=== PATIENT | female | born 1970 | race Two or more races ===

== ENCOUNTER 2017-12-06 12:10 | Observation (INO) ==
--- NOTE | 2017-12-06 14:05 | Emergency Department Note ---
[facility] [place] Clinical Impression: Right lower quadrant abdominal pain Disposition: Still a Patient Condition on Discharge: Fair Time of Disposition: 14:04 Medical Decision Making - Travis Inquiry Pt receiving controlled substance: No Vital Signs: 12/06/17 12:20 Temperature 97.9 F Temperature Source Temporal Artery Scan Pulse Rate [Left Radial] 104 H Respiratory Rate 20 Blood Pressure [Left Arm] 137/92 Blood Pressure Mean [Left Arm] 107 Blood Pressure Source [Left Arm] Automatic Cuff Blood Pressure Position [Left Arm] Sitting 02 Sat by Pulse Oximetry 97 Oxygen Delivery Method Room Air - Lab Data Lab results reviewed: Yes: I reviewed the patient's lab results. Lab Results 12/06/17 12:45: Urine Color Yellow, Urine Appearance Clear, Urine pH 7.5, Ur Specific [place] 1.020, Urine Protein Trace, Urine Glucose (UA) Negative, Urine Ketones Negative, Urine Blood Negative, Urine Nitrate Negative, Urine Bilirubin Negative, Urine Urobilinogen 0.2, Ur Leukocyte Esterase Trace - Reevaluation(s) Time: 14:02 Reevaluation #1: Discussed possible differentials and [facility] guidelines w/ patient. Agreeable to transfer to ER for further evaluation, likely CT scan. Report called to Latanya in ER> Bed 9 available [facility] [place] - General Stated complaint: Abd pain Time Seen by Provider: 12/06/17 13:50 Mode of Arrival: Ambulatory Source of Information: Patient Limitations: No Limitations Description of Symptoms (Recalled from Triage Doc. by RN): Pt states she has had upper right quadrant pain for 4-5 days. She states she has a history of problems with her gallbladder. HEENT Symptoms (Recalled from RN notes): No Resp Symptoms (Recalled from RN notes): No Skin Symptoms (Recalled from RN notes): No MS Symptoms (Recalled from RN notes): No Functional Status (Recalled from RN notes): na - History of Present Illness Provider Complaint: c/o "pain in my gallbladder". pt thinks it is her gallbladder because approx one year ago she was told it was "damaged but not bad enough to be removed". Pain started again 4-5 days ago right side of abdomen and progressively getting worse. Currently 5-6/10, constant but fluctuates. Improved w/ guarding. Worse after eating and w/ speed bumps in parking lot. Associated w/ cramps and bloating however cramps resolved after day 2. LMP 10 years ago. excedrin not helping. Chills at times but no fever. Nausea but no vomiting. - Related Data Allergies Allergy/AdvReac Type Severity Reaction Status Date / Time No Known Allergies Allergy Verified 12/06/17 12:24 - Worker's Comp Is this a Worker's Comp case?: No H History I have reviewed the patient's past medical history: Yes Medical History: Reports:: Gall Bladder Disease Denies:: Diabetes Mellitus Type 2, Hypertension Other Surgeries: Yes: No Previous Surgery - Social History Alcohol Intake: never - Psychiatric History Expresses thoughts of harming self/others: None Suicide Plan Description: No Plan ROS Obtained: Yes Systems reviewed as appropriate & no additional complaints - Constitutional Constitutional: Reports as per HPI, Reports difficulty sleeping, Reports poor appetite (last ate around 9am this morning) - Cardiovascular Cardiovascular: Denies chest pain, Denies edema, Denies irregular heart rhythm - Respiratory Respiratory: No cough, No dyspnea - Gastrointestinal Gastrointestingal: Reports: as per HPI. Denies: change in bowel habits, change in stool character, pain with swallowing, vomiting - Genitourinary Female Genitourinary: Denies abnormal vaginal bleeding, Denies difficulty voiding, Denies dysuria, Denies urinary frequency, Denies urinary hesitancy, Denies vaginal discharge, Denies other (change urine color or smell) - Musculoskeletal Musculoskeletal: Denies back pain, Denies limited range of motion, Denies radiating pain into limb - Integumentary/Breasts Skin/Breast: Denies rash, Denies wounds - Neurologic Neurologic: Denies dizziness, Denies headache(s), Denies weakness Physical Exam - General General appearance: alert, other (guarding RLQ) - ENT ENT exam: Present: mucous membranes moist - Chest Chest inspection: Present: symmetric chest wall rise - Respiratory Respiratory exam: Present: normal lung sounds bilaterally. Absent: respiratory distress - Cardiovascular Cardiovascular exam: Present: normal rhythm, tachycardia, normal heart sounds - Abdominal Exam Abdominal exam: Present: soft, tenderness (RLQ), diminished bowel sounds, obturator sign, tenderness at McBurney's Point. Absent: distention, guarding, rebound, organomegaly, Haskins's sign, Rovsing's sign Abdominal tenderness: Absent: suprapubic - Extremities Exam Extremities exam: Present: full ROM (x4) - Back Exam Back exam: Present: normal inspection, full ROM. Absent: tenderness, CVA tenderness (R), CVA tenderness (L) - Neurological Exam Neurological exam: Present: alert, oriented X3 - Skin Skin exam: Present: warm, dry, intact, normal color
--- NOTE | 2017-12-06 14:43 | Emergency Department Note ---
ED Disposition Clinical Impression: Right lower quadrant abdominal pain Disposition: Still a Patient Referrals: Provider,Referral, [Referring] - Attestation: On 12/06/17, the high probability of a clinically significant, sudden or life threatening deterioration of the following system(s) required my full and direct attention, intervention and personal management. The time I documented below is in addition to time spent performing reported procedures but includes the following listed in this critical care notation. Medical Decision Making - Travis Inquiry Pt receiving controlled substance: No Vital Signs: 12/06/17 12:20 12/06/17 14:17 12/06/17 15:11 Temperature 97.9 F 99.0 F 98.6 F Temperature Source Temporal Artery Scan Oral Oral Pulse Rate [Left Radial] 104 H 88 77 Respiratory Rate 20 20 16 Blood Pressure [Left Arm] 137/92 117/98 127/90 Blood Pressure Mean [Left Arm] 107 104 102 Blood Pressure Source [Left Arm] Automatic Cuff Automatic Cuff Automatic Cuff Blood Pressure Position [Left Arm] Sitting Sitting Sitting 02 Sat by Pulse Oximetry 97 94 L 99 Oxygen Delivery Method Room Air Room Air Room Air - Lab Data Lab Results 12/06/17 12:45: Urine Color Yellow, Urine Appearance Clear, Urine pH 7.5, Ur Specific [place] 1.020, Urine Protein Trace, Urine Glucose (UA) Negative, Urine Ketones Negative, Urine Blood Negative, Urine Nitrate Negative, Urine Bilirubin Negative, Urine Urobilinogen 0.2, Ur Leukocyte Esterase Trace 12/06/17 14:40: WBC 7.5, RBC 6.04 H, Hgb 15.8, Hct 50.5 H, MCV 83.5, MCH 26.1 L , MCHC 31.3 L, RDW 14.6, Plt Count 230, MPV 7.2 L, Neut % (Auto) 72.8, Lymph % ( Auto) 20.8, [place] % (Auto) 4.6, Eos % (Auto) 1.6, Baso % (Auto) 0.3, Neut # (Auto ) 5.4, Lymph # (Auto) 1.6, [place] # (Auto) 0.3, Eos # (Auto) 0.1, Baso # (Auto) 0.0 12/06/17 14:40: Sodium 142, Potassium 3.9, Chloride 104, Carbon Dioxide 29, Anion Gap 12.9, BUN 12, Creatinine 0.60, Estimated Creat Clear 144, Estimated GFR 108, Est GFR ( Amer) 131, Glucose 119 H, Calcium 9.4, Total Bilirubin 0.4, AST 16, ALT 19, Alkaline Phosphatase 58, Total Protein 7.4, Albumin 3.8, Globulin 3.6 H, Albumin/Globulin Ratio 1.1, Lipase 437 H 12/06/17 14:40: Amylase 82 Result diagrams: 12/06/17 14:40 12/06/17 14:40 Orders (Tests/Meds): ED MEDICATIONS Discontinued Medications Generic Name Dose Route Start Last Admin Trade Name Freq PRN Reason Stop Dose Admin Iopamidol 75 ml 12/06/17 16:30 12/06/17 16:30 [id number]; 75ml Vial IV 12/06/17 16:31 75 ml ONCE ONE Administration Sodium Chloride 10 ml 12/06/17 16:30 12/06/17 16:31 Rad-Saline Flush 10ml Syringe IV 12/06/17 16:31 10 ml ONCE ONE Administration ORDERS Category Date Time Status CT abdomen pelvis w con Routine Cat Scan 12/06/17 Taken - CT Data CT Scan: Abdomen, Pelvis Time Received: 16:[address] Reviewed: Yes: I discussed the CT results w/the radiologist Findings Narrative: Acute appendicitis. Thickened appendix with no signs of perforation or abscess. - Physician Consults Physician Consulted: Zechariah Time: 16:49 Reason -: Admission Comment/Response: He will come to the emergency room to see the patient. He requests the surgery team be called in. General Adult HPI - General Chief complaint: PAIN Stated complaint: Abd pain Time Seen by Provider: 12/06/17 13:50 Mode of Arrival: Ambulatory Limitations: No Limitations Description of Symptoms (Recalled from ER Triage Doc. by RN): Pt states she started having pain on right side for mid area. Says she has had gallbladder pain in the past and this feels the same. Before when she had trouble with her gallbladder they told her to change her diet. - History of Present Illness HPI narrative: 4 day history of right-sided abdominal pain. She indicates the mid abdomen, at about the level of the umbilicus. Nausea after eating, but eating does not make the pain worse. Laying on her right side does make it worse. She has had chills but no fever. No vomiting, diarrhea, constipation, or urinary symptoms. In 2014 she had gallbladder ultrasound and hepatobiliary scan at this facility which showed a small amount of sludge on the ultrasound and a normal ejection fraction on biliary scan. Seen in the urgent treatment center and sent to the emergency room for further evaluation. - Related Data Allergies Allergy/AdvReac Type Severity Reaction Status Date / Time No Known Allergies Allergy Verified 12/06/17 12:24 [facility] History I have reviewed the patient's past medical history: Yes Medical History: Reports:: Gall Bladder Disease Denies:: Diabetes Mellitus Type 2, Hypertension Other Surgeries: Yes: No Previous Surgery - Social History Alcohol Intake: never - Psychiatric History Expresses thoughts of harming self/others: None Suicide Plan Description: No Plan ROS Obtained: Yes All systems reviewed & no additional complaints - Constitutional Constitutional: Reports chills, Denies fever(s) - Cardiovascular Cardiovascular: Denies chest pain - Respiratory Respiratory: No dyspnea - Gastrointestinal Gastrointestingal: Reports: abdominal pain, nausea. Denies: diarrhea, vomiting - Genitourinary Female Genitourinary: Reports absent period (10 yrs), Denies dysuria Physical Exam - General General appearance: alert, other (guarding RLQ) - Head Head exam: atraumatic, normocephalic, normal inspection - Eye Eye exam: Present: normal appearance, PERRL, EOMI - ENT ENT exam: Present: normal exam, normal oropharynx, mucous membranes moist, TM's normal bilaterally, normal external ear exam - Neck Neck exam: Present: normal inspection, full ROM, trachea midline. Absent: meningismus, lymphadenopathy - Chest Chest inspection: Present: normal inspection, symmetric chest wall rise. Absent : tenderness - Respiratory Respiratory exam: Present: normal lung sounds bilaterally. Absent: respiratory distress - Cardiovascular Cardiovascular exam: Present: regular rate, normal rhythm. Absent: JVD - Abdominal Exam Abdominal exam: Present: soft, tenderness, normal bowel sounds. Absent: distention, guarding, rebound Abdominal tenderness: Present: RUQ, RLQ - Extremities Exam Extremities exam: Present: normal inspection, full ROM, normal capillary refill. Absent: calf tenderness - Back Exam Back exam: Present: normal inspection. Absent: tenderness - Neurological Exam Neurological exam: Present: alert, oriented X3 - Psychiatric Psychiatric exam: Present: normal affect, normal mood - Skin Skin exam: Present: warm, dry, intact, normal color - Lymphatic Lymphatic Findings: no adenopathy
[2017-12-06 15:06] LABS: Basophils % 0.3 % (0.1-2.0); Eosinophils # 0.1 K/mm3 (0.0-0.4); Eosinophils % 1.6 % (0.1-12.0); Hematocrit 50.5 % (37.0-47.0); Hemoglobin 15.8 g/dL (12.2-16.2); Lymphocytes # 1.6 K/mm3 (0.7-4.5); Lymphocytes % 20.8 K/mm3 (10-50); Mean Corpuscular HGB Conc 31.3 g/dL (31.8-35.4); Mean Corpuscular Hemoglobin 26.1 pg (27.0-31.2); Mean Corpuscular Volume 83.5 fl (81-99); Mean Platelet Volume 7.2 fl (7.4-10.4); Monocytes # 0.3 K/mm3 (0.1-1.0); Monocytes % 4.6 % (1.7-9.3); Neutrophils # 5.4 K/mm3 (1.8-7.8); Neutrophils % 72.8 % (37.0-80.0); Platelet Count 230 K/mm3 (142-424); Red Blood Count 6.04 M/mm3 (4.20-5.40); Red Cell Distribution Width 14.6 % (11.5-17.5); White Blood Count 7.5 K/mm3 (4.8-10.8)
[2017-12-06 15:14] LABS: Albumin Level 3.8 gm/dL (3.4-5.0); Albumin/Globulin Ratio 1.1 (1.1-1.8); Anion Gap 12.9 mEq/L (5-15); Bilirubin,Total 0.4 mg/dL (0.2-1.0); Calcium 9.4 mg/dL (8.5-10.1); Globulin 3.6 gm/dl (1.3-3.2); Total Protein,Serum 7.4 gm/dL (6.4-8.2)
[2017-12-06 15:15] LABS: Potassium 3.9 mmoL/L (3.5-5.1)
--- NOTE | 2017-12-06 17:54 | Progress Note ---
[facility] Anesthesia Checklist - Patient Identification Patient Identification: Arm Band, Verbal (Name & ) - Structural Data Admitted From: Emergency Dept Consent for Planned Operative Procedure(s) Verified: Yes Verified Documents: Surgical Consent, History and Physical - NPO Status Verified Time NPO: 09:30 - Additional verifications Patient : No Anesthesia Reactions: No - Airway Assessment C-Spine Mobility Assessed: Yes TMJ Mobility Assessed: Yes Dentition: Good Dentition (Missing four teeth) - Neurological Assessment Level of Consciousness: Awake Hx Seizures: No Numbness or tingling in extremities: No - Anesthesia Plan Anesthesia Risk discussed: Yes Anesthesia Plan: Verified ASA Class: II (Emergent) Anesthesia Type: General [facility] Anesthesia HX I have reviewed the patient's past medical history: Yes Medical History: Reports:: Anxiety, Gall Bladder Disease Denies:: Diabetes Mellitus Type 2, Hypertension, Seizures Other Surgeries: Yes: No Previous Surgery
--- NOTE | 2017-12-06 17:56 | Emergency Department Note ---
ED Disposition Clinical Impression: Acute appendicitis Disposition: Still a Patient Condition on Discharge: Good - Critical Care Critical Care Time: No Attestation: On 12/06/17, the high probability of a clinically significant, sudden or life threatening deterioration of the following system(s) required my full and direct attention, intervention and personal management. The time I documented below is in addition to time spent performing reported procedures but includes the following listed in this critical care notation. Medical Decision Making - Travis Inquiry Pt receiving controlled substance: No Vital Signs: 12/06/17 12:20 12/06/17 14:17 12/06/17 15:11 Temperature 97.9 F 99.0 F 98.6 F Temperature Source Temporal Artery Scan Oral Oral Pulse Rate [Left Radial] 104 H 88 77 Respiratory Rate 20 20 16 Blood Pressure [Left Arm] 137/92 117/98 127/90 Blood Pressure Mean [Left Arm] 107 104 102 Blood Pressure Source [Left Arm] Automatic Cuff Automatic Cuff Automatic Cuff Blood Pressure Position [Left Arm] Sitting Sitting Sitting 02 Sat by Pulse Oximetry 97 94 L 99 Oxygen Delivery Method Room Air Room Air Room Air 12/06/17 16:58 Temperature 98.4 F Temperature Source Oral Pulse Rate [Left Radial] 80 Respiratory Rate 18 Blood Pressure [Left Arm] 120/87 Blood Pressure Mean [Left Arm] 98 Blood Pressure Source [Left Arm] Automatic Cuff Blood Pressure Position [Left Arm] Sitting 02 Sat by Pulse Oximetry 97 Oxygen Delivery Method Room Air - Lab Data Lab Results 12/06/17 12:45: Urine Color Yellow, Urine Appearance Clear, Urine pH 7.5, Ur Specific [place] 1.020, Urine Protein Trace, Urine Glucose (UA) Negative, Urine Ketones Negative, Urine Blood Negative, Urine Nitrate Negative, Urine Bilirubin Negative, Urine Urobilinogen 0.2, Ur Leukocyte Esterase Trace 12/06/17 14:40: WBC 7.5, RBC 6.04 H, Hgb 15.8, Hct 50.5 H, MCV 83.5, MCH 26.1 L , MCHC 31.3 L, RDW 14.6, Plt Count 230, MPV 7.2 L, Neut % (Auto) 72.8, Lymph % ( Auto) 20.8, [place] % (Auto) 4.6, Eos % (Auto) 1.6, Baso % (Auto) 0.3, Neut # (Auto ) 5.4, Lymph # (Auto) 1.6, [place] # (Auto) 0.3, Eos # (Auto) 0.1, Baso # (Auto) 0.0 12/06/17 14:40: Sodium 142, Potassium 3.9, Chloride 104, Carbon Dioxide 29, Anion Gap 12.9, BUN 12, Creatinine 0.60, Estimated Creat Clear 144, Estimated GFR 108, Est GFR ( Amer) 131, Glucose 119 H, Calcium 9.4, Total Bilirubin 0.4, AST 16, ALT 19, Alkaline Phosphatase 58, Total Protein 7.4, Albumin 3.8, Globulin 3.6 H, Albumin/Globulin Ratio 1.1, Lipase 437 H 12/06/17 14:40: Amylase 82 Result diagrams: 12/06/17 14:40 12/06/17 14:40 Orders (Tests/Meds): ED MEDICATIONS Discontinued Medications Generic Name Dose Route Start Last Admin Trade Name Freq PRN Reason Stop Dose Admin Iopamidol 75 ml 12/06/17 16:30 12/06/17 16:30 [id number]; 75ml Vial IV 12/06/17 16:31 75 ml ONCE ONE Administration Sodium Chloride 10 ml 12/06/17 16:30 12/06/17 16:31 Rad-Saline Flush 10ml Syringe IV 12/06/17 16:31 10 ml ONCE ONE Administration Sodium Chloride 1,000 ml 12/06/17 16:48 Sod Chlor 0.9% 1000ml Bag IV 12/06/17 16:49 BOLUS ONE ORDERS Category Date Time Status CT abdomen pelvis w con Routine Cat Scan 12/06/17 Taken - CT Data CT Scan: Abdomen, Pelvis Time Received: 16:[address] Reviewed: Yes: I discussed the CT results w/the radiologist Findings Narrative: Acute appendicitis. Thickened appendix without signs of perforation or abscess. - Physician Consults Physician Consulted: Zechariah Time: 16:49 Reason -: Admission Comment/Response: Came to the emergency department and saw the patient and took to surgery General Adult HPI - General Chief complaint: PAIN Stated complaint: Abd pain Time Seen by Provider: 12/06/17 13:50 Mode of Arrival: Ambulatory Limitations: No Limitations Description of Symptoms (Recalled from ER Triage Doc. by RN): Pt states she started having pain on right side for mid area. Says she has had gallbladder pain in the past and this feels the same. Before when she had trouble with her gallbladder they told her to change her diet. - History of Present Illness HPI narrative: Right sided abdominal pain for 3 days. Nausea but no vomiting, diarrhea, urinary symptoms, or fever. Has had chills. Worse while laying on the right side. Eating does not make the pain worse. In 2014 she had gallbladder ultrasound and hepatobiliary scan at this facility which showed a small amount of sludge and a normal ejection fraction. Seen in the urgent treatment center and sent to the emergency room for further evaluation. - Related Data Allergies Allergy/AdvReac Type Severity Reaction Status Date / Time No Known Allergies Allergy Verified 12/06/17 12:24 [facility] History I have reviewed the patient's past medical history: Yes Medical History: Reports:: Gall Bladder Disease Denies:: Diabetes Mellitus Type 2, Hypertension, Seizures Other Surgeries: Yes: No Previous Surgery - Social History Alcohol Intake: never - Psychiatric History Expresses thoughts of harming self/others: None Suicide Plan Description: No Plan ROS Obtained: Yes All systems reviewed & no additional complaints - Constitutional Constitutional: Reports chills, Denies fever(s) - Cardiovascular Cardiovascular: Denies chest pain - Respiratory Respiratory: No dyspnea - Gastrointestinal Gastrointestingal: Reports: abdominal pain, nausea. Denies: diarrhea, vomiting - Genitourinary Female Genitourinary: Denies difficulty voiding, Denies dysuria Physical Exam - General General appearance: alert, other (guarding RLQ) - Head Head exam: atraumatic, normocephalic, normal inspection - Eye Eye exam: Present: normal appearance, PERRL, EOMI - ENT ENT exam: Present: normal exam, normal oropharynx, mucous membranes moist, TM's normal bilaterally, normal external ear exam - Neck Neck exam: Present: normal inspection, full ROM, trachea midline. Absent: meningismus, lymphadenopathy - Chest Chest inspection: Present: normal inspection, symmetric chest wall rise. Absent : tenderness - Respiratory Respiratory exam: Present: normal lung sounds bilaterally. Absent: respiratory distress - Cardiovascular Cardiovascular exam: Present: regular rate, normal rhythm. Absent: JVD - Abdominal Exam Abdominal exam: Present: soft, tenderness, normal bowel sounds. Absent: distention, guarding Abdominal tenderness: Present: RUQ, RLQ - Extremities Exam Extremities exam: Present: normal inspection, full ROM, normal capillary refill. Absent: calf tenderness - Back Exam Back exam: Present: normal inspection. Absent: tenderness - Neurological Exam Neurological exam: Present: alert, oriented X3 - Psychiatric Psychiatric exam: Present: normal affect, normal mood - Skin Skin exam: Present: warm, dry, intact, normal color - Lymphatic Lymphatic Findings: no adenopathy
--- NOTE | 2017-12-06 19:33 | Operative Note ---
Date of procedure: 12/06/17 Pre-op Diagnosis:: Appendicitis Post-op Diagnosis:: Same Procedure performed:: Laparoscopic appendectomy Surgeon:: Singh Apple MD Anesthesia: GETA Estimated blood loss (mL): 10 Operative findings:: Enlarged inflamed/thickened appendix with no sign of perforation Operative note:: After informed consent was obtained, the patient was taken to the operating room and placed in the supine position general anesthesia was induced and her abdomen was prepped and draped in a sterile fashion. After infiltration of local anesthetic an infraumbilical incision was made. A Veress needle was placed in position. The abdomen was insufflated. A 12 mm optical trocar was placed in position. Under direct visualization a 5 mm trocar was placed in the suprapubic position. An additional 5 mm trocar was placed in the left lower quadrant. The appendix was elevated. The appendix was thickened and inflamed. No sign of perforation was noted. No cavities of purulence or fluid collections were seen. A window was made in the mesoappendix at the base. A PUSHPA stapler was utilized to take the appendix at the base. Harmonic bri were then utilized to take the mesoappendix. The appendix was placed in a retrieval bag and removed through the infraumbilical trocar site. The right lower quadrant was thoroughly irrigated. No active bleeding or sign of injury was noted. Fascia at the infraumbilical trocar site was reapproximated with 0 Ethibond. Pneumoperitoneum was released as the remaining trocars were removed. All wounds were irrigated and skin was closed with 4-0 Monocryl in a subcuticular fashion. Steri-Strips were applied. The patient's anesthetic agents were reversed and she was extubated prior to transfer to recovery. Condition: stable Disposition: PACU Specimens:: Appendix Complications:: No immediate
--- NOTE | 2017-12-06 19:48 | Progress Note ---
[facility] Anesthesia Record Part I Intake, IV Amount: 500 Estimated blood loss (mL): 10 Urine output (mL): 30 Blood Products used (#): none Blood Pressure: 160/81 SaO2: 97 Pulse Rate: 87 Respiratory Rate: 16 Temperature: 98.4 F Patient is:: Awake, Stable Stable to PACU at:: 19:40
--- NOTE | 2017-12-06 19:48 | Progress Note ---
[facility] Anesthesia Record Part II Discharge Time: 20:10 Destination: Medical Surgical Department PACU nurse assessment reviewed?: Yes Patient Condition:: Good Anesthesia Complications:: None
--- NOTE | 2017-12-07 06:27 | Progress Note ---
Subjective Patient reports: feels better Exam Vital signs and Labs for Last 24 Hours: Temp Pulse Resp BP Pulse Ox 97.7 F 74 16 97/48 97 12/07/17 03:35 12/07/17 03:35 12/07/17 03:35 12/07/17 03:35 12/07/17 03:35 Laboratory Results - last 24 hr 12/06/17 12:45: Urine Color Yellow, Urine Appearance Clear, Urine pH 7.5, Ur Specific [place] 1.020, Urine Protein Trace, Urine Glucose (UA) Negative, Urine Ketones Negative, Urine Blood Negative, Urine Nitrate Negative, Urine Bilirubin Negative, Urine Urobilinogen 0.2, Ur Leukocyte Esterase Trace 12/06/17 14:40: WBC 7.5, RBC 6.04 H, Hgb 15.8, Hct 50.5 H, MCV 83.5, MCH 26.1 L , MCHC 31.3 L, RDW 14.6, Plt Count 230, MPV 7.2 L, Neut % (Auto) 72.8, Lymph % ( Auto) 20.8, [place] % (Auto) 4.6, Eos % (Auto) 1.6, Baso % (Auto) 0.3, Neut # (Auto ) 5.4, Lymph # (Auto) 1.6, [place] # (Auto) 0.3, Eos # (Auto) 0.1, Baso # (Auto) 0.0 12/06/17 14:40: Sodium 142, Potassium 3.9, Chloride 104, Carbon Dioxide 29, Anion Gap 12.9, BUN 12, Creatinine 0.60, Estimated Creat Clear 144, Estimated GFR 108, Est GFR ( Amer) 131, Glucose 119 H, Calcium 9.4, Total Bilirubin 0.4, AST 16, ALT 19, Alkaline Phosphatase 58, Total Protein 7.4, Albumin 3.8, Globulin 3.6 H, Albumin/Globulin Ratio 1.1, Lipase 437 H 12/06/17 14:40: Amylase 82 12/06/17 18:30: Urine Color Yellow, Urine Appearance Clear, Urine pH 5.5, Ur Specific [place] 1.015, Urine Protein Negative, Urine Glucose (UA) Negative, Urine Ketones Negative, Urine Blood 1+, Urine Nitrate Negative, Urine Bilirubin Negative, Urine Urobilinogen 0.2, Ur Leukocyte Esterase Negative, Urine RBC 3-5 , Urine WBC Occasional, Ur Squamous Epith Cells Occasional, Urine Bacteria Trace I & O for Last 24 hours: Intake & Output 12/04/17 12/05/17 12/06/17 12/07/17 11:59 11:59 11:59 11:59 Intake Total 1650 / 1650 Output Total Balance 1620 / 1620 Weight 190 lb 2 oz - Constitutional no acute distress - *Routine Respiratory Exam Absent: respiratory distress - *Routine Cardiovascular Exam Present: RRR - *Routine Abdominal Exam Present: soft Comments: dressing intact and dry. no erythema. Progress Note: A&P (1) Acute appendicitis Status: Acute Assessment and plan: Overall, doing very well postoperative day 1 status post laparoscopic appendectomy. Discharge home No heavy lifting Return to clinic for reevaluation in 1-2 weeks Current Visit: Yes
--- NOTE | 2017-12-07 06:30 | Discharge Summary ---
General - General Admission date:: 12/06/17 Discharge date: 12/07/17 HPI HPI: This is a 47-year-old female who presented to the emergency department with increasing right lower quadrant pain. She had radiographic evidence consistent with appendicitis and the surgical service was consulted. Hospital Course Hospital Course: The patient underwent laparoscopic appendectomy. Please see operative report for detail. No sign of perforation or abscess noted. On the morning of postoperative day 1 she was afebrile with stable normal vital signs. She was ambulating without difficulty and tolerating a diet. Objective Vital signs: Temp Pulse Resp BP Pulse Ox 97.7 F 74 16 97/48 97 12/07/17 03:35 12/07/17 03:35 12/07/17 03:35 12/07/17 03:35 12/07/17 03:35 no acute distress - *Routine Neck Exam Present: full ROM - *Routine Respiratory Exam Absent: respiratory distress - *Routine Cardiovascular Exam Present: RRR - *Routine Abdominal Exam Present: soft, tenderness Comments: RLQ - *Routine Neurological Exam Present: alert, oriented X3 - Routine Psychiatric Exam Present: normal affect Results Labs on day of discharge: Labs from last 24 hours 12/06/17 12/06/17 12/06/17 18:30 14:40 14:40 WBC RBC Hgb Hct MCV MCH MCHC RDW Plt Count MPV Neut % (Auto) Lymph % (Auto) [place] % (Auto) Eos % (Auto) Baso % (Auto) Neut # (Auto) Lymph # (Auto) [place] # (Auto) Eos # (Auto) Baso # (Auto) Sodium 142 Potassium 3.9 Chloride 104 Carbon Dioxide 29 Anion Gap 12.9 BUN 12 Creatinine 0.60 Estimated Creat Clear 144 Estimated GFR 108 Est GFR ( Amer) 131 Glucose 119 H Calcium 9.4 Total Bilirubin 0.4 AST 16 ALT 19 Alkaline Phosphatase 58 Total Protein 7.4 Albumin 3.8 Globulin 3.6 H Albumin/Globulin Ratio 1.1 Amylase 82 Lipase 437 H Urine Color Yellow Urine Appearance Clear Urine pH 5.5 Ur Specific [place] 1.015 Urine Protein Negative Urine Glucose (UA) Negative Urine Ketones Negative Urine Blood 1+ Urine Nitrate Negative Urine Bilirubin Negative Urine Urobilinogen 0.2 Ur Leukocyte Esterase Negative Urine RBC 3-5 Urine WBC Occasional Ur Squamous Epith Cells Occasional Urine Bacteria Trace 12/06/17 12/06/17 14:40 12:45 WBC 7.5 RBC 6.04 H Hgb 15.8 Hct 50.5 H MCV 83.5 MCH 26.1 L MCHC 31.3 L RDW 14.6 Plt Count 230 MPV 7.2 L Neut % (Auto) 72.8 Lymph % (Auto) 20.8 [place] % (Auto) 4.6 Eos % (Auto) 1.6 Baso % (Auto) 0.3 Neut # (Auto) 5.4 Lymph # (Auto) 1.6 [place] # (Auto) 0.3 Eos # (Auto) 0.1 Baso # (Auto) 0.0 Sodium Potassium Chloride Carbon Dioxide Anion Gap BUN Creatinine Estimated Creat Clear Estimated GFR Est GFR ( Amer) Glucose Calcium Total Bilirubin AST ALT Alkaline Phosphatase Total Protein Albumin Globulin Albumin/Globulin Ratio Amylase Lipase Urine Color Yellow Urine Appearance Clear Urine pH 7.5 Ur Specific [place] 1.020 Urine Protein Trace Urine Glucose (UA) Negative Urine Ketones Negative Urine Blood Negative Urine Nitrate Negative Urine Bilirubin Negative Urine Urobilinogen 0.2 Ur Leukocyte Esterase Trace Urine RBC Urine WBC Ur Squamous Epith Cells Urine Bacteria DS: Diagnosis - Discharge Diagnosis (1) Acute appendicitis Status: Acute Discharge Plan - Patient Discharge Instructions ACTIVITY: No heavy lifting DIET: advance to your usual diet - Follow up Plan Follow up with: Singh Apple MD [Primary Care Provider] - 1 week Provider,MD Ector [Referring] - Disposition: Home, Self-Senior Care Medications: Home Medications Medication Instructions Recorded Confirmed Type Duloxetine HCl 20 mg PO DAILY 12/06/17 12/06/17 History Prescriptions/Medication Reconciliation: Continue Duloxetine HCl 20 mg PO DAILY
--- NOTE | 2017-12-07 07:37 | Pharmacy Consult Notes ---
[facility] Pharmacy VTE Monitoring - Patient Demographics Admission date: 12/06/17 Report Date: 12/07/17 Time: 07:37 Allergies/Adverse Reactions: Patient Allergies No Known Allergies Allergy (Verified 12/06/17 12:24) Height: 1.75 m Weight: 86.239 kg Patient Problems: Current Active Problems Acute appendicitis (Acute) - VTE Risk Labs: VTE Related Lab Results Hgb 15.8 g/dL (12.2-16.2) 12/06/17 14:40 Hct 50.5 % (37.0-47.0) H 12/06/17 14:40 Plt Count 230 K/mm3 (142-424) 12/06/17 14:40 BUN 12 mg/dL (7-18) 12/06/17 14:40 Creatinine 0.60 mg/dL (0.55-1.02) 12/06/17 14:40 Estimated Creat Clear 144 mL/min (0-300) 12/06/17 14:40 VTE Score: 3 VTE Risk Level: Low Risk - Prophylaxis VTE Prophylaxis Ordered?: Yes Types of VTE Prophylaxis: IPCS Thigh High Location of Applied Device: Bilateral Lower Extremeties - VTE Diagnosis Confirmed Treatment or plan recommended: Continue Current Treatment
== END 2017-12-07 09:20 | disposition home or self-care (01) ==
LOC: UTC 12:10 → 2ND 17:10 → OR 17:10 → EDUNIT# 18:16
PROVIDERS: ADMIT Surgery; ATTEND Surgery
CPT/HCPCS: 74177; 80053; 81001; 81003; 82150; 83690; 85025; 96365; 99284; G0378; J2405; J2543; Q9967

== ENCOUNTER → 2018-02-08 12:23 | Outpatient (CLI) | payer BC, SELFPAY ==
[2018-02-08 13:01] LABS: Basophils % 0.5 % (0.1-2.0); Eosinophils # 0.1 K/mm3 (0.0-0.4); Eosinophils % 1.8 % (0.1-12.0); Hematocrit 46.8 % (37.0-47.0); Hemoglobin 15.5 g/dL (12.2-16.2); Lymphocytes # 1.4 K/mm3 (0.7-4.5); Lymphocytes % 25.2 K/mm3 (10-50); Mean Corpuscular HGB Conc 33.1 g/dL (31.8-35.4); Mean Corpuscular Hemoglobin 27.5 pg (27.0-31.2); Mean Platelet Volume 7.1 fl (7.4-10.4); Monocytes # 0.2 K/mm3 (0.1-1.0); Monocytes % 4.3 % (1.7-9.3); Neutrophils # 3.8 K/mm3 (1.8-7.8); Neutrophils % 68.2 % (37.0-80.0); Platelet Count 268 K/mm3 (142-424); Red Blood Count 5.64 M/mm3 (4.20-5.40); Red Cell Distribution Width 14.4 % (11.5-17.5); White Blood Count 5.6 K/mm3 (4.8-10.8)
[2018-02-08 14:43] LABS: Hemoglobin A1C 5.6 % (0.0-7.0)
[2018-02-08 15:00] LABS: Alanine Aminotransferase 20 U/L (12-78); Albumin Level 4.4 gm/dL (3.4-5.0); Albumin/Globulin Ratio 1.3 (1.1-1.8); Alkaline Phosphatase 77 U/L (46-116); Anion Gap 12.9 mEq/L (5-15); Aspartate Amino Transferase 17 U/L (15-37); Bilirubin,Total 0.6 mg/dL (0.2-1.0); Blood Urea Nitrogen 15 mg/dL (7-18); Calcium 9.4 mg/dL (8.5-10.1); Carbon Dioxide 27 mmol/L (21.0-32.0); Chloride 107 mmol/L (98-107); Chol/HDL Ratio 5.3 (1-3.5); Cholesterol 208 mg/dL (140-200); Creatinine,Serum 0.55 mg/dL (0.55-1.02); Estimated Glomerular Filt Rate 120 ml/min (>60); Ferritin 90 ng/mL (8-388); Free Thyroxine Index 2.9 ug/dL (5.93-13.13); GFR (African American) 145 ML/MIN (>60); Globulin 3.4 gm/dl (1.3-3.2); Glucose 101 mg/dL (74-106); HDL Cholesterol 39 mg/dL (29-89); LDL Cholesterol 135 mg/dL (0-130); Potassium 3.9 mmoL/L (3.5-5.1); Sodium 143 mmol/L (136-145); T4 (Thyroxine) 9.5 ug/dl (4.7-13.3); Thyroid Stimulating Hormone 1.54 uIU/ml (0.358-3.740); Total Protein,Serum 7.8 gm/dL (6.4-8.2); Triglycerides 172 mg/dL (30-200); Triiodothryronine (T3) Uptake 30 % (31-39); VLDL Cholesterol 34 mg/dL (0-40)
[2018-02-09 08:30] LABS: Iron 56 ug/dL (27-159); Iron Saturation 15 % (15-55); UIBC 313 ug/dL (131-425)
[2018-02-09 18:17] LABS: Vitamin B12 523 pg/mL (232-1245)
== END ==
PROVIDERS: Visit Provider Nurse Practitioner Family
DX: R73.9 Hyperglycemia, unspecified (principal); R53.81 Other malaise; E01.0 Iodine-deficiency related diffuse (endemic) goiter
CPT/HCPCS: 36415; 80053; 80061; 82607; 82728; 83036; 83540; 83550; 84436; 84443; 84479; 85025

== ENCOUNTER → 2018-02-13 09:17 | Outpatient (CLI) | payer BC, SELFPAY ==
--- NOTE | 2018-02-13 09:19 | US_ITS ---
US thyroid HISTORY: ITS.REASON: THYROMEGLY ORDERING PHYSICIAN: Miranda Sotomayor PATIENT AGE: 47 years Comparison: None FINDINGS: The right lobe is 4.6 x 2.5 x 2 cm with heterogeneous echogenicity. The left lobe is 4.8 x 1.3 x 2.2 cm with heterogeneous echogenicity. There was a question of a nodule in the upper pole on the right however, discrete margins are not demonstrated in both the transverse and sagittal planes The isthmus is slightly thickened 4 mm. IMPRESSION: Thyromegaly with heterogeneous echogenicity. Discrete nodule is not identified. There is questionable nodule in the upper pole on the right but not demonstrated in both transverse and sagittal plane. Recommend 6 month follow-up to confirm stability.
== END ==
PROVIDERS: Family Provider Internal Medicine Adolescent Medicine; PCP Nurse Practitioner Family; Visit Provider Nurse Practitioner Family
DX: E01.0 Iodine-deficiency related diffuse (endemic) goiter (principal)
CPT/HCPCS: 76536

== ENCOUNTER → 2018-03-13 10:54 | Outpatient (POV) | payer BC, SELFPAY ==
[2018-03-14 10:24] LABS: Thyroid Peroxidase Antibodies 159 IU/mL (0-34)
[2018-03-15 08:32] LABS: Thyroglobulin Level <1.0 IU/mL (0.0-0.9)
== END ==
PROVIDERS: Visit Provider Otolaryngology
DX: E01.0 Iodine-deficiency related diffuse (endemic) goiter (principal)
CPT/HCPCS: 36415; 86376; 86800

== ENCOUNTER → 2018-06-04 08:00 | Outpatient (POV) | payer BC, SELFPAY | PROVIDERS: Visit Provider Specialist | DX: M54.10 Radiculopathy, site unspecified (principal) | CPT/HCPCS: 95886; 95908 ==

== ENCOUNTER → 2018-09-12 16:18 | Outpatient (CLI) | payer BC, SELFPAY ==
--- NOTE | 2018-09-12 16:23 | XR_ITS ---
XR KUB HISTORY: ITS.REASON: FLANK PAIN ORDERING PHYSICIAN: Heaven Blackman PATIENT AGE: 47 years COMPARISON: None FINDINGS: The bowel gas pattern is unremarkable. No obvious obstruction.. No abnormal calcifications are evident. No obvious renal or ureteral calculi.. No acute bony anomalies evident. There is an IUD in place. IMPRESSION: Negative KUB, no acute finding CT may be of further value if renal stone is suspected
== END ==
PROVIDERS: PCP Family Medicine; Visit Provider Family Medicine
DX: R10.9 Unspecified abdominal pain (principal)
CPT/HCPCS: 74018

== ENCOUNTER → 2019-02-25 09:38 | Outpatient (CLI) | payer BC, SELFPAY | PROVIDERS: PCP Internal Medicine Adolescent Medicine; Visit Provider Family Medicine | DX: R00.2 Palpitations (principal) | CPT/HCPCS: 93270 ==

== ENCOUNTER → 2019-07-29 14:04 | Outpatient (CLI) | payer BC, SELFPAY ==
--- NOTE | 2019-07-29 14:08 | US_ITS ---
PROCEDURE: US THYROID CLINICAL INDICATION: THYROMEGLY COMPARISON: THY US thyroid from 02/13/2018 FINDINGS: Right lobe: 2.0 x 5.7 x 2.3 centimeters Left lobe: 1.7 x 5.7 x 2.0 centimeters Isthmus: 5.3 millimeters Additional findings: There is heterogeneity of the thyroid echotexture. A focal hypoechoic area in the superior posterior right thyroid 8.9 x 7.3 x 6.6 millimeters is suspicious for a true nodule. Nodule in the upper pole of the left thyroid 0.97 x 1.3 x 0.81 centimeters is noted with increased color Doppler blood flow. IMPRESSION: Heterogeneous enlarged thyroid with at least 1 solid nodule in each lobe. Dictated by: Ivan Horne 07/29/2019 18:09 Electronically signed by Ivan Horne in [place] 07/29/2019 18:09
== END ==
PROVIDERS: PCP Internal Medicine Adolescent Medicine; Visit Provider Pediatrics
DX: E01.0 Iodine-deficiency related diffuse (endemic) goiter (principal)
CPT/HCPCS: 76536

== ENCOUNTER → 2019-08-20 09:34 | Outpatient (CLI) | payer BC, SELFPAY ==
--- NOTE | 2019-08-20 09:40 | US_ITS ---
PROCEDURE: US BIOPSY GUIDANCE CLINICAL INDICATION: THYROID NODULE Left-sided thyroid nodule COMPARISON: US THYROID from 07/29/2019 TECHNIQUE: Following obtaining informed consent, using aseptic technique and local anesthesia with buffered lidocaine, fine-needle aspiration was performed of the nodule of interest using sonographic guidance. 3 passes were made into the nodule with a 25-gauge needle. Specimen was given to cytology. FINDINGS: CYTOLOGY: Negative for malignancy. Consistent with chronic lymphocytic thyroiditis IMPRESSION: Uneventful ultrasound-guided fine needle aspiration of the left lobe of the thyroid gland negative for malignancy. The patient tolerated the procedure well without evidence of immediate complications and left the ultrasound suite in stable condition. Dictated by: Arcadio Smith MD 08/22/2019 17:09 Electronically signed by Arcadio Smith MD in [place] 08/22/2019 17:09
== END ==
PROVIDERS: PCP Nurse Practitioner Family; Visit Provider Pediatrics
DX: E04.1 Nontoxic single thyroid nodule (principal)
CPT/HCPCS: 60100; 76942

== ENCOUNTER 2020-01-23 18:48 | Emergency (ER) | payer BC, SELFPAY ==
[2020-01-23 19:05] LABS: Apearance,Urine Clear (Clear); Bilirubin,Urine Negative (Negative); Blood, Urine Trace (Negative); Color,Urine Yellow (Yellow); Glucose,Urine (UA) Negative (Negative); Ketones,Urine Negative (Negative); Protein,Urine Negative (Negative); UTC Leukocyte Esterase,Urine Negative (Negative); UTC Nitrate,Urine Negative (Negative); Urobilinogen,Urine 0.2 EU/dl (0.2)
[2020-01-23 19:06] VITALS: BP 149/89; PULSE 84; RESP 18; TEMP 37.1; O2SAT 100; BMI 30.2
--- NOTE | 2020-01-23 19:12 | HMH.EDUTC ---
[facility] [place] Disposition Clinical Impression: Abdominal pain Qualifiers: Abdominal location: unspecified location Qualified Code(s): R10.9 - Unspecified abdominal pain Disposition: Still a Patient Condition on Discharge: Good Referrals: Miranda Sotomayor APRN [Primary Care Provider] - Time of Disposition: 19:23 Medical Decision Making - Travis Inquiry Pt receiving controlled substance: No Trvais was queried for this patient: No Vital Signs: 01/23/20 19:06 Temperature 98.8 F Temperature Source Oral Pulse Rate [Left Brachial] 84 Respiratory Rate 18 Blood Pressure [Left Arm] 149/89 H Blood Pressure Mean [Left Arm] 109 Blood Pressure Source [Left Arm] Automatic Cuff Blood Pressure Position [Left Arm] Sitting 02 Sat by Pulse Oximetry 100 Oxygen Delivery Method Room Air - Lab Data Lab Results 01/23/20 19:05: Urine Color Yellow, Urine Appearance Clear, Urine pH 6.0, Ur Specific [place] 1.030, Urine Protein Negative, Urine Glucose (UA) Negative, Urine Ketones Negative, Urine Blood Trace, Urine Nitrate Negative, Urine Bilirubin Negative, Urine Urobilinogen 0.2, Ur Leukocyte Esterase Negative Orders (Tests/Meds): ORDERS Category Date Time Status Urinalysis and Microscopic Stat Lab 01/23/20 19:08 Ordered Medical Decision Narrative: Patient reports upper abdominal pain that radiates around upper abdominal area and into her back, reports she had similar pain before with appendicitis and when she would have gall bladder pain Reports pain has continued to get worse since she eat at [employer] yesterday. Discussed with patient and she agreed for transfer to ED for further evaluation and testing for abdominal pain Called ER spoke with Padmini Gama RN and patient was moved to room 10 in ED for further work up and evaluation for abdominal pain. [facility] [place] HPI - General Stated complaint: stomach pain Time Seen by Provider: 01/23/20 19:12 Mode of Arrival: Ambulatory Source of Information: Patient Limitations: No Limitations Description of Symptoms (Recalled from Triage Doc. by RN): PATIENT C/O UPPER ABDOMINAL PAIN THAT RADIATES TO BACK THAT STARTED 2 DAYS AGO. PAIN IS WORSE AFTER EATING, AND HER ABDOMEN FEELS SWOLLEN. C/O NAUSEA, DENIES VOMITING/DIARRHEA HEENT Symptoms (Recalled from RN notes): No Resp Symptoms (Recalled from RN notes): No Skin Symptoms (Recalled from RN notes): No MS Symptoms (Recalled from RN notes): No Functional Status (Recalled from RN notes): WNL - History of Present Illness Provider Complaint: Patient states that she has been having pain in her upper abdominal area States that pain started after she eat at [employer] yesterday States that pain has continued to get worse since yesterday and feels like it is shooting through abdomen into back States that she feels like her stomach is swollen and bloated. States that pain is 7/10 and consistant. Reports that she has had some Nausea but denies vomiting/diarrhea. States that tonight pain was at its worse so she came in to get checked - Related Data Home Medications Medication Instructions Recorded Confirmed metoprolol tartrate 25 mg tablet PO 08/06/19 08/06/19 Allergies Allergy/AdvReac Type Severity Reaction Status Date / Time No Known Allergies Allergy Verified 08/06/19 17:43 - Worker's Comp Is this a Worker's Comp case?: No [facility] History - Hepatitis A Screen Drug use history?: No High risk sexual behaviors?: No History of sexually transmitted infection?: No Currently employed?: No Childcare worker?: No Do you have indoor plumbing?: Yes Do you have electricity?: Yes Attestation statement:: This patient has been screened for Hepatitis A risk factors. I have reviewed the patient's past medical history: Yes Medical History: Reports:: Anxiety, Gall Bladder Disease Denies:: Diabetes Mellitus Type 1, Diabetes Mellitus Type 2, Hypertension, Seizures Other Surgeries: Yes: No Previous Surgery, Appendectomy Amputation: N
--- NOTE | 2020-01-23 19:13 | PC.NURSE ---
PATIENT SENT TO ER PER RUIZ EVANS APRN FOR FURTHER EVALUATION OF C/O ABDOMINAL PAIN
[2020-01-23 19:19] LABS: Microscopic, Urine URINE MICROSCOPIC (MICROSCOPIC)
[2020-01-23 19:20] VITALS: BP 148/76; PULSE 75; RESP 15; TEMP 37.2; O2SAT 99; BMI 32.1
[2020-01-23 19:20] LABS: Appearance,Urine CLEAR (Clear); Bilirubin,Urine Negative (Negative); Blood, Urine TRACE-I (Negative); Color,Urine YELLOW (Yellow); Glucose,Urine (UA) Negative (Negative); Ketones,Urine Negative (Negative); Leukocyte Esterase,Urine Negative (Negative); Nitrate,Urine Negative (Negative); Protein,Urine Negative (Negative); Specific Gravity, Urine >= 1.030 (1.005-1.030); Urobilinogen,Urine 0.2 EU/dl (0.2)
[2020-01-23 19:26] LABS: UTC Pregnancy Test, Urine Negative (Negative)
[2020-01-23 19:28] LABS: Bacteria,Urine Trace /lpf; Mucus,Urine 1+ /lpf; RBC,Urine Occasional #/hpf (0-3)
--- NOTE | 2020-01-23 19:28 | CT_ITS ---
PROCEDURE: CT ABDOMEN PELVIS W CON CLINICAL INDICATION: belly pain Upper abdominal pain with nausea COMPARISON: CT abdomen pelvis w con from 12/06/2017 TECHNIQUE: IV Contrast: 75ML OPTIRAY 350 Oral Contrast None Axial images obtained with sagittal and coronal reformats. All CT scans at the facility use one or more dose reduction, viz: automated exposure control, ma/kV adjustment per patient size (including targeted exams where dose is matched to indication, i.e. head), or iterative reconstruction technique. FINDINGS: LOWER THORAX: There are mild atelectatic changes in the right middle lobe ABDOMEN & PELVIS: Hepatic cysts are once again noted the largest in the left hepatic lobe laterally measuring up to 5.5 cm. The spleen, adrenal glands, and pancreas have an unremarkable appearance. Subtle areas of decreased attenuation are present involving the cortical medullary junction of both kidneys possibly related to pyelonephritis. No abscess or perinephric fluid collection evident. No intestinal obstruction or free air. Prior appendectomy. Unremarkable appearing gallbladder. Coarse calcification noted in the central mesenteric region in the mid pelvic area. There is an IUD in place. No pelvic mass abnormal fluid collection or focal inflammatory change. No acute bony findings. The IMPRESSION: 1. Possible bilateral pyelonephritis 2. Stable hepatic cysts Dictated by: Arcadio Smith MD 01/24/2020 06:09 Electronically signed by Arcadio Smith MD in [place] 01/24/2020 06:09
[2020-01-23 19:35] LABS: Basophils % 0.5 % (0.1-2.0); Eosinophils # 0.1 K/mm3 (0.0-0.4); Eosinophils % 1.4 % (0.1-12.0); Hematocrit 46.1 % (37.0-47.0); Hemoglobin 15.5 g/dL (12.2-16.2); Lymphocytes # 1.8 K/mm3 (0.7-4.5); Lymphocytes % 26.4 % (10-50); Mean Corpuscular HGB Conc 33.6 g/dL (31.8-35.4); Mean Corpuscular Hemoglobin 27.5 pg (27.0-31.2); Mean Corpuscular Volume 81.8 fl (81-99); Mean Platelet Volume 7.2 fl (7.4-10.4); Monocytes # 0.3 K/mm3 (0.1-1.0); Monocytes % 4.7 % (1.7-9.3); Neutrophils # 4.6 K/mm3 (1.8-7.8); Neutrophils % 66.8 % (37.0-80.0); Platelet Count 293 K/mm3 (142-424); Red Blood Count 5.63 M/mm3 (4.20-5.40); Red Cell Distribution Width 14.3 % (11.5-17.5); White Blood Count 6.8 K/mm3 (4.8-10.8)
[2020-01-23 19:36] LABS: Chloride 101 mmol/L (98-107); Potassium 3.8 mmoL/L (3.5-5.1); Sodium 141 mmol/L (136-145)
[2020-01-23 19:39] LABS: Alanine Aminotransferase 17 U/L (12-78); Albumin Level 4.8 g/dl (3.5-5.0); Albumin/Globulin Ratio 1.5 (1.1-1.8); Alkaline Phosphatase 65 U/L (38-126); Amylase 96 U/L (30-110); Anion Gap 15.8 mEq/L (5-15); Aspartate Amino Transferase 37 U/L (14-36); Bilirubin,Total 0.6 mg/dl (0.2-1.3); Blood Urea Nitrogen 13 mg/dl (7-17); Calcium 9.6 mg/dl (8.4-10.2); Carbon Dioxide 28 mmol/L (22.0-30.0); Creatinine Clearance Estimated 169 mL/min (50-200); Estimated Glomerular Filt Rate 132 ml/min (>60); GFR (African American) 160 ML/MIN (>60); Globulin 3.2 g/dL (1.3-3.2); Glucose 101 mg/dl (74-100); Lipase 299 U/L (23-300)
[2020-01-23 20:00] VITALS: BP 151/80; PULSE 72; RESP 16; O2SAT 99
--- NOTE | 2020-01-23 21:06 | HMH.EDNVD ---
ED Disposition Clinical Impression: Abdominal pain Qualifiers: Abdominal location: unspecified location Qualified Code(s): R10.9 - Unspecified abdominal pain Disposition: Home, Self-Care Condition on Discharge: Good Instructions: DI for Acute Abdomen Additional Instructions: please call pcp for gb eval Referrals: Miranda Sotomayor APRN [Primary Care Provider] - - Critical Care Critical Care Time: No Attestation: On 01/23/20, the high probability of a clinically significant, sudden or life threatening deterioration of the following system(s) required my full and direct attention, intervention and personal management. The time I documented below is in addition to time spent performing reported procedures but includes the following listed in this critical care notation. Medical Decision Making - Medical Records Medical records reviewed: Yes: I reviewed the patient's medical records. - Travis Inquiry Pt receiving controlled substance: No Vital Signs: 01/23/20 19:06 01/23/20 19:20 Temperature 98.8 F 99.0 F Temperature Source Oral Oral Pulse Rate [Left Brachial] 84 75 Respiratory Rate 18 15 Blood Pressure [Left Arm] 149/89 H 148/76 H Blood Pressure Mean [Left Arm] 109 100 Blood Pressure Source [Left Arm] Automatic Cuff Automatic Cuff Blood Pressure Position [Left Arm] Sitting Sitting 02 Sat by Pulse Oximetry 100 99 Oxygen Delivery Method Room Air Room Air - Lab Data Lab results reviewed: Yes: I reviewed the patient's lab results. Lab Results 01/23/20 18:55: Urine Color Yellow, Urine Appearance Clear, Urine pH 6.0, Ur Specific [place] >= 1.030, Urine Protein Negative, Urine Glucose (UA) Negative, Urine Ketones Negative, Urine Blood Trace-i, Urine Nitrate Negative, Urine Bilirubin Negative, Urine Urobilinogen 0.2, Ur Leukocyte Esterase Negative, Urine RBC Occasional, Urine WBC 5-10, Ur Squamous Epith Cells 10-20, Urine Bacteria Trace, Urine Mucus 1+ 01/23/20 19:05: Urine Color Yellow, Urine Appearance Clear, Urine pH 6.0, Ur Specific [place] 1.030, Urine Protein Negative, Urine Glucose (UA) Negative, Urine Ketones Negative, Urine Blood Trace, Urine Nitrate Negative, Urine Bilirubin Negative, Urine Urobilinogen 0.2, Ur Leukocyte Esterase Negative 01/23/20 19:20: WBC 6.8, RBC 5.63 H, Hgb 15.5, Hct 46.1, MCV 81.8, MCH 27.5, MCHC 33.6, RDW 14.3, Plt Count 293, MPV 7.2 L, Neut % (Auto) 66.8, Lymph % (Auto) 26.4, [place] % (Auto) 4.7, Eos % (Auto) 1.4, Baso % (Auto) 0.5, Neut # (Auto) 4.6, Lymph # (Auto) 1.8, [place] # (Auto) 0.3, Eos # (Auto) 0.1, Baso # (Auto) 0.0 01/23/20 19:20: Sodium 141, Potassium 3.8, Chloride 101, Carbon Dioxide 28, Anion Gap 15.8 H, BUN 13, Creatinine 0.50 L, Estimated Creat Clear 169, Estimated GFR 132, Est GFR ( Amer) 160, Glucose 101 H, Calcium 9.6, Total Bilirubin 0.6, AST 37 H, ALT 17, Alkaline Phosphatase 65, Total Protein 8.0, Albumin 4.8, Globulin 3.2, Albumin/Globulin Ratio 1.5, Amylase 96, Lipase 299 01/23/20 19:26: Tst Clinic Negative Result diagrams: 01/23/20 19:20 01/23/20 19:20 Orders (Tests/Meds): ED MEDICATIONS Generic Name Dose Route Start Last Admin Trade Name Freq PRN Reason Stop Dose Admin Sodium Chloride 1,000 mls @ 999 mls/hr 01/23/20 19:30 01/23/20 19:28 Sod Chlor 0.9% 1000ml Bag IV 01/23/20 20:30 999 mls/hr .[id number] LAQUITA Administration Discontinued Medications Generic Name Dose Route Start Last Admin Trade Name Freq PRN Reason Stop Dose Admin Ioversol 75 ml 01/23/20 20:03 01/23/20 20:04 Rad-Optiray 350 100ml Vial IV 01/23/20 20:04 75 ml ONCE ONE Administration Protocol Ketorolac Tromethamine 30 mg 01/23/20 19:27 01/23/20 19:28 Toradol 30mg/Ml Vial IV 01/23/20 19:28 30 mg ONCE ONE Administration Ondansetron HCl 4 mg 01/23/20 19:27 01/23/20 19:28 Zofran 4mg/2ml Vial IV 01/23/20 19:28 4 mg ONCE ONE Administration Sodium Chloride 10 ml 01/23/20 20:03 01/23/20 20:04 Rad-Saline Flush 10ml S
[2020-01-23 21:17] VITALS: BP 150/99; PULSE 77; RESP 16; TEMP 37.1; O2SAT 97
== END 2020-01-23 21:51 | disposition home or self-care (01) ==
LOC: UTC 18:52 → ER 19:11
PROVIDERS: Nurse Practitioner; Emergency Provider Emergency Medicine; PCP Nurse Practitioner Family
DX: R10.10 Upper abdominal pain, unspecified (principal); F41.9 Anxiety disorder, unspecified; Z90.49 Acquired absence of other specified parts of digestive tract
CPT/HCPCS: 74177; 80053; 81001; 81003; 81025; 82150; 83690; 85025; 87086; 96365; 96375; 99283; J2405; Q9967

== ENCOUNTER → 2020-01-31 07:44 | Outpatient (CLI) | payer BC, SELFPAY ==
--- NOTE | 2020-01-31 07:51 | US_ITS ---
PROCEDURE: US ABDOMEN LIMITED CLINICAL INDICATION: ABD PAIN COMPARISON: RUQ US RUQ-(ABD LTD)1ORGAN/QUAD/FU from 02/16/2015 FINDINGS: PANCREAS: Unremarkable. No obvious mass or abnormal fluid collection. No ductal dilatation LIVER: There is a 5 cm cyst within the liver not significantly changed. There is appropriate direction of blood flow within a non dilated portal vein. Common bile duct is normal at 2 mm. RIGHT KIDNEY: Unremarkable. Normal size and echogenicity. No hydronephrosis GALLBLADDER: No gallstones, gallbladder wall thickening, pericholecystic fluid, or biliary dilatation. IMPRESSION: 1. 5 cm cyst in the left lobe of the liver. 2. Otherwise unremarkable right upper quadrant ultrasound Dictated by: Arcadio Smith MD 01/31/2020 09:49 Electronically signed by Arcadio Smith MD in [place] 01/31/2020 09:49
--- NOTE | 2020-01-31 07:52 | US_ITS ---
PROCEDURE: US KIDNEY CLINICAL INDICATION: PYELONEPHRITIS COMPARISON: No exams were available for comparison FINDINGS: The right kidney is [id number]. No hydronephrosis, cortical thinning, or renal mass or perinephric fluid collection is evident. The left kidney is [id number]. No hydronephrosis, cortical thinning, or renal mass or perinephric fluid collection is evident. IMPRESSION: Unremarkable bilateral renal ultrasound Dictated by: Arcadio Smith MD 01/31/2020 09:45 Electronically signed by Arcadio Smith MD in [facility] 01/31/2020 09:45
== END ==
PROVIDERS: PCP Nurse Practitioner Family; Visit Provider Family Medicine
DX: R10.11 Right upper quadrant pain (principal); N12 Tubulo-interstitial nephritis, not specified as acute or chronic
CPT/HCPCS: 76705; 76770

== ENCOUNTER → 2020-02-21 09:24 | Outpatient (CLI) | payer BC, SELFPAY ==
--- NOTE | 2020-02-21 09:31 | NM_ITS ---
PROCEDURE: NM HEPATOBILIARY W PHARM CLINICAL INDICATION: ABD PAIN,RLQ COMPARISON: US US ABDOMEN LIMITED from 01/31/2020 TECHNIQUE: 8.3 mCi technetium Choletec and 1.6 mcg of CCK. Slight pain was reported with CCK infusion DOSE: FINDINGS: Homogeneous activity is present within the hepatic parenchyma. Activity is present in the gallbladder by 5 minutes. Activity is present in the small bowel by 30 minutes. The gallbladder ejection fraction is calculated to be 91 percent. CCK-The patient reported mild pain during CCK infusion. IMPRESSION: No evidence of common or cystic duct obstruction. Normal gallbladder ejection fraction Dictated by: Arcadio Smith MD 02/21/2020 13:37 Arcadio Smith MD in [place] 02/21/2020 13:37
== END ==
PROVIDERS: PCP Nurse Practitioner Family; Visit Provider Family Medicine
DX: R10.31 Right lower quadrant pain (principal)
CPT/HCPCS: 78227; A9537; J2805

== ENCOUNTER 2020-05-11 12:15 | Emergency (ER) | payer BC, SELFPAY ==
--- NOTE | 2020-05-11 12:30 | XR_ITS ---
PROCEDURE: XR HIP LT 2-3V W/PELVIS CLINICAL INDICATION: left hip pain COMPARISON: No exams were available for comparison FINDINGS: No fracture or dislocation is evident. No significant degenerative change. No lytic or blastic change. Unremarkable soft tissues. IMPRESSION: No acute findings. Dictated by: Arcadio Smith MD 05/11/2020 16:56 Arcadio Smith MD in [facility] 05/11/2020 16:56
[2020-05-11 12:31] VITALS: BP 120/84; PULSE 74; RESP 16; TEMP 36.9; O2SAT 97; BMI 33.0
--- NOTE | 2020-05-11 12:56 | HMH.EDUTC ---
[facility] [place] Disposition Clinical Impression: Left hip pain Disposition: Home, Self-Care Condition on Discharge: Good Instructions: Help for Hip Pain, DI for Hip Pain Additional Instructions: Rest the extremity, Elevate the extremity as tolerated while you are resting. Take the naproxen for pain that I prescribed. Don't take your ibuprofen with this. Also, if you do take ibuprofen, don't take over 800 mg ever [address] Follow up with Dr. Rincon (orthopedics). I put in a referral but you need to call his office and schedule an appointment if you are not getting some better with in a couple of days. Follow up with your regular doctor. GO TO THE ER FOR ANY WORSENING SYMPTOMS Prescriptions: Naproxen [Naproxen 500mg tab] 500 mg PO BIDP PRN #30 tab PRN Reason: Moderate Pain Transmission Status: Received by [id number] Referrals: Miranda Sotomayor APRN [Primary Care Provider] - Forms: Work/School Release Time of Disposition: 13:09 Medical Decision Making - Medical Records Medical records reviewed: No: I reviewed the patient's medical records. - Travis Inquiry Pt receiving controlled substance: No Vital Signs: 05/11/20 12:31 05/11/20 13:13 Temperature 98.5 F 98.5 F Temperature Source Oral Pulse Rate 74 Pulse Rate [Right Brachial] 74 Respiratory Rate 16 16 Blood Pressure 120/84 Blood Pressure [Right Arm] 120/84 Blood Pressure Mean [Right Arm] 96 Blood Pressure Source [Right Arm] Automatic Cuff Blood Pressure Position [Right Arm] Sitting 02 Sat by Pulse Oximetry 97 Oxygen Delivery Method Room Air - Radiology Data #1 Image(s): Hip Image Reviewed: Yes I reviewed the patient's radiology image PROCEDURE: XR HIP LT 2-3V W/PELVIS CLINICAL INDICATION: left hip pain COMPARISON: No exams were available for comparison FINDINGS: No fracture or dislocation is evident. No significant degenerative change. No lytic or blastic change. Unremarkable soft tissues. IMPRESSION: No acute findings. Dictated by: Arcadio Smith MD 05/11/2020 16:56 Arcadio Smith MD in [facility] 05/11/2020 16:56 [facility] [place] HPI - General Stated complaint: pain in left hip, Time Seen by Provider: 05/11/20 12:56 Mode of Arrival: Ambulatory Source of Information: Patient Limitations: No Limitations Description of Symptoms (Recalled from Triage Doc. by RN): PATIENT C/O PAIN TO LEFT HIP. SHE BELIEVES IT IS CAUSED BY THE CHAIR SHE SITS IN AT WORK. PAIN IS WORSE WITH WALKING AND CLIMBING STAIRS HEENT Symptoms (Recalled from RN notes): No Resp Symptoms (Recalled from RN notes): No Skin Symptoms (Recalled from RN notes): No MS Symptoms (Recalled from RN notes): No Functional Status (Recalled from RN notes): WNL - History of Present Illness Provider Complaint: She c/o left hip pain for the past 4 to 5 days. She denies any injury. She states that she feels like her chair at her work is causing it because she has to sit in a funny position to reach the ground with her feet. Walking makes the pain worse. She states that walking up steps makes it much worse. She is basically unable to climb steps at this time because of it. She has been taking ibuprofen with not much relief. She cannot identify if it is worse in the morning or after she has worked all day. - Related Data Home Medications Medication Instructions Recorded Confirmed metoprolol tartrate 25 mg tablet PO 08/06/19 08/06/19 Previous Rx's Medication Instructions Recorded Naproxen [Naproxen 500mg tab] 500 mg PO BIDP PRN #30 tab 05/11/20 Allergies Allergy/AdvReac Type Severity Reaction Status Date / Time No Known Allergies Allergy Verified 01/23/20 19:38 - Worker's Comp Is this a Worker's Comp case?: No H History - Hepatitis A Screen Drug use history?: No High risk sexual behaviors?: No History of sexually transmitted infection?: No Currently employed?: No Childcare worker?: No Do you have indoor plumbing?: Yes Do you
[2020-05-11 13:13] VITALS: BP 120/84; PULSE 74; RESP 16; TEMP 36.9; O2SAT 97
== END 2020-05-11 13:15 | disposition home or self-care (01) ==
PROVIDERS: Emergency Provider Nurse Practitioner Family; PCP Nurse Practitioner Family
DX: M25.552 Pain in left hip (principal); F41.9 Anxiety disorder, unspecified; K82.9 Disease of gallbladder, unspecified
CPT/HCPCS: 73502; 99201

== ENCOUNTER → 2020-05-12 09:32 | Outpatient (CLI) | payer BC, SELFPAY ==
--- NOTE | 2020-05-12 09:39 | US_ITS ---
PROCEDURE: US KIDNEY CLINICAL INDICATION: FLANK PAIN, ACUTE COMPARISON: US US KIDNEY from 01/31/2020 FINDINGS: The right kidney is [id number]. No hydronephrosis, cortical thinning, or renal mass or perinephric fluid collection is evident. The left kidney is [id number]. No hydronephrosis, cortical thinning, or renal mass or perinephric fluid collection is evident. IMPRESSION: Unremarkable bilateral renal ultrasound Dictated by: Arcadio Smith MD 05/12/2020 12:51 Arcadio Smith MD in [place] 05/12/2020 12:51
== END ==
PROVIDERS: PCP Pediatrics; Visit Provider Nurse Practitioner Family
DX: R10.9 Unspecified abdominal pain (principal)
CPT/HCPCS: 76770

== ENCOUNTER → 2020-09-22 14:14 | Outpatient (CLI) | payer BC, SELFPAY ==
--- NOTE | 2020-09-22 14:16 | US_ITS ---
PROCEDURE: US THYROID CLINICAL INDICATION: THYROID NODULE COMPARISON: US US THYROID from 07/29/2019 US US BIOPSY GUIDANCE from 08/20/2019 FINDINGS: The right lobe of the thyroid gland is 5.9 x 1.4 x 2.6 cm. There is heterogeneous echogenicity. A 9 x 5 mm hypoechoic nodules present in the upper pole unchanged. The left lobe is 6.2 x 1.3 x 2.1 cm with heterogeneous echogenicity. Decreased echogenicity is present in the lower pole posteriorly. This area measures approximately 16 by 8 mm and may only be due to heterogeneous echogenicity as opposed to a nodule. This area was previously biopsied and was negative for malignancy. The size is not significantly changed. No new nodules are evident. The isthmus is unremarkable. IMPRESSION: Overall no change enlarged thyroid gland with diffuse heterogeneous echogenicity as described above. Stable 9 mm nodule upper pole on the right and stable area of of decreased echogenicity in the lower pole on the left Dictated by: Arcadio Smith MD 09/23/2020 17:49 Arcadio Smith MD in [place] 09/23/2020 17:49
== END ==
PROVIDERS: PCP Pediatrics; Visit Provider Pediatrics
DX: E04.1 Nontoxic single thyroid nodule (principal)
CPT/HCPCS: 76536

== ENCOUNTER → 2020-10-20 10:01 | Outpatient (POV) | payer BC, SELFPAY | PROVIDERS: Visit Provider Dermatology | DX: Z00.00 Encounter for general adult medical examination without abnormal findings (principal) ==

== ENCOUNTER → 2021-01-12 14:52 | Outpatient (CLI) | payer BC, SELFPAY ==
--- NOTE | 2021-01-12 15:00 | CT_ITS ---
PROCEDURE: CT HEAD/BRAIN WO CON CLINICAL INDICATION: MIGRAINE W/ AURA AND W/O STATUS MIGRAINOSUS COMPARISON: No exams were available for comparison TECHNIQUE: Axial images obtained. All CT scans at the facility use one or more dose reduction, viz: automated exposure control, ma/kV adjustment per patient size (including targeted exams where dose is matched to indication, i.e. head), or iterative reconstruction technique. FINDINGS: No midline shift, mass effect, intracranial hemorrhage, hydrocephalus, or extra-axial fluid collection is evident. Minor artifact is present from right ear piercing the calvarium has an unremarkable appearance. No mastoid effusion. No sinus air-fluid level. IMPRESSION: No acute intracranial finding Dictated by: Arcadio Smith MD 01/12/2021 16:18 Arcadio Smith MD in [place] 01/12/2021 16:18
== END ==
PROVIDERS: PCP Pediatrics; Visit Provider Nurse Practitioner Family
DX: G43.109 Migraine with aura, not intractable, without status migrainosus (principal)
CPT/HCPCS: 70450

== ENCOUNTER → 2021-03-05 19:52 | Outpatient (CLI) | payer BC, SELFPAY | PROVIDERS: Visit Provider Nurse Practitioner Family | DX: Z20.822 Contact with and (suspected) exposure to COVID-19 (principal); U07.1 COVID-19 | CPT/HCPCS: U0003 ==

== ENCOUNTER → 2021-03-17 07:42 | Outpatient (CLI) | payer BC, SELFPAY ==
--- NOTE | 2021-03-17 07:48 | MR_ITS ---
PROCEDURE: MR SHOULDER RT WO CON CLINICAL INDICATION: RT SHOULDER PAIN SINCE INURY 4 YEARS AGO COMPARISON: CR XR SHOULDER RT MIN 2V from 03/17/2021 TECHNIQUE: Routine multiplanar multi echo sequences are performed without gadolinium enhancement. FINDINGS: Mild acromioclavicular hypertrophy. Mild subacromial stenosis at 5 mm. Tendinopathy/tendinosis involves the infraspinatus tendon and supraspinatus tendon. No evidence of rotator cuff tear. The subscapularis and teres minor tendons have an unremarkable appearance. No labral tear evident. Small amount fluid is noted deep to the deltoid muscle at the humeral head region. Minimal subchondral cystic change is noted involving the humeral head superiorly and posteriorly. Bicipital tendon is in place. IMPRESSION: 1. No evidence of rotator cuff tear. 2. Tendinopathy/tendinosis of the infraspinatus and supraspinatus tendons 3. Small amount fluid deep to the deltoid muscle at the humeral head possibly related to bursitis. 4. Small area of subchondral cystic change and the humeral head posteriorly and superiorly. This area measures approximately 8 mm. Dictated by: Arcadio Smith MD 03/18/2021 08:32 Arcadio Smith MD in [place] 03/18/2021 08:32
--- NOTE | 2021-03-17 08:54 | XR_ITS ---
PROCEDURE: XR LUMBAR SPINE 2-3V CLINICAL INDICATION: LOW BACK PAIN COMPARISON: No exams were available for comparison FINDINGS: Alignment: Normal alignment. Bony structures: No fracture or dislocation. No lytic or blastic change. Disc spaces: No significant degenerative change. The disc spaces are preserved. Additional findings: IMPRESSION: No acute findings. Dictated by: Arcadio Smith MD 03/17/2021 11:37 Arcadio Smith MD in [place] 03/17/2021 11:37
--- NOTE | 2021-03-17 08:54 | XR_ITS ---
PROCEDURE: XR SHOULDER RT MIN 2V CLINICAL INDICATION: RT SHOULDER PAIN COMPARISON: No exams were available for comparison FINDINGS: No fracture or dislocation. No lytic or blastic change. There is normal mineralization. The joint spaces are well-preserved. No significant degenerative/arthritic changes. No erosive changes evident. Other findings:None. IMPRESSION: Negative right shoulder Dictated by: Arcadio Smith MD 03/17/2021 11:36 Arcadio Smith MD in [place] 03/17/2021 11:36
== END ==
PROVIDERS: PCP Pediatrics; Visit Provider Pediatrics
DX: M25.511 Pain in right shoulder (principal); G89.29 Other chronic pain; M54.31 Sciatica, right side
CPT/HCPCS: 72100; 73030; 73221

== ENCOUNTER 2021-07-18 19:57 | Emergency (ER) | payer BC, SELFPAY ==
[2021-07-18 20:00] VITALS: BP 137/87; PULSE 84; RESP 20; TEMP 37.1; O2SAT 98; BMI 29.2
--- NOTE | 2021-07-18 20:35 | HMH.EDUTC ---
[facility] [place] Disposition Clinical Impression: Fever Qualifiers: Fever type: unspecified Qualified Code(s): R50.9 - Fever, unspecified Disposition: Home, Self-Care Condition on Discharge: Good Instructions: Fever of Unknown Origin Additional Instructions: follow up with pcp if any symptoms return or be seen in ed Referrals: Tang Blackwood JR, MD [Primary Care Provider] - Forms: Work/School Release Time of Disposition: 20:38 Medical Decision Making - Travis Inquiry Pt receiving controlled substance: No Vital Signs: 07/18/21 20:00 Temperature 98.7 F Temperature Source Oral Pulse Rate [Right Brachial] 84 Respiratory Rate 20 Blood Pressure [Right Arm] 137/87 Blood Pressure Mean [Right Arm] 103 Blood Pressure Source [Right Arm] Automatic Cuff Blood Pressure Position [Right Arm] Sitting 02 Sat by Pulse Oximetry 98 Oxygen Delivery Method Room Air [facility] [place] HPI - General Chief complaint: [facility] Stated complaint: covid test Time Seen by Provider: 07/18/21 20:35 Mode of Arrival: Ambulatory Source of Information: Patient Limitations: No Limitations Description of Symptoms (Recalled from Triage Doc. by RN): PATIENT C/O BODY ACHES AND FEVER SINCE MONDAY HEENT Symptoms (Recalled from RN notes): No Resp Symptoms (Recalled from RN notes): No Skin Symptoms (Recalled from RN notes): No MS Symptoms (Recalled from RN notes): Yes Functional Status (Recalled from RN notes): WNL - History of Present Illness Provider Complaint: 50 yr old female presents for flu test. pt states body aches and fever on monday but no symtoms since then. pt states she has had two covid test both are neg and does not want another. - Related Data Home Medications Medication Instructions Recorded Confirmed metoprolol tartrate 25 mg tablet PO 08/06/19 03/15/21 albuterol sulfate 90 mcg/actuation 1 inh INHALATION QID 03/05/21 03/15/21 aerosol inhaler fluticasone propionate 50 1 spray INTRANASAL DAILY 03/05/21 03/15/21 mcg/actuation nasal spray,suspension levothyroxine 75 mcg tablet 75 mcg PO DAILY 03/05/21 03/15/21 sumatriptan succinate 25 mg tablet 25 mg PO Q2H PRN 03/05/21 03/15/21 topiramate 25 mg tablet 25 mg PO DAILY 03/05/21 03/15/21 Previous Rx's Medication Instructions Recorded azithromycin 250 mg tablet 250 mg PO QDAY 5 Days #6 tab 03/15/21 Allergies Allergy/AdvReac Type Severity Reaction Status Date / Time No Known Allergies Allergy Verified 03/15/21 14:12 - Worker's Comp Is this a Worker's Comp case?: No [facility] History - Hepatitis A Screen Drug use history?: No High risk sexual behaviors?: No History of sexually transmitted infection?: No Currently employed?: No Childcare worker?: No Do you have indoor plumbing?: Yes Do you have electricity?: Yes Attestation statement:: This patient has been screened for Hepatitis A risk factors. I have reviewed the patient's past medical history: Yes Medical History: Reports:: Anxiety, Gall Bladder Disease, Migraine Denies:: Diabetes Mellitus Type 1, Diabetes Mellitus Type 2, Hypertension, Seizures Other Medical History: Reports: Thyroid Disease Other Surgeries: Yes: No Previous Surgery, Appendectomy Amputation: No Fractures: No - Social History Smoking Status: Never smoker Alcohol Intake: never Substance Use Type: denies use Occupational Status: other Housing: apartment - Psychiatric History Pschychiatric History:: Reports:: Anxiety Family Hx:: Diabetes ROS Obtained: Yes Systems reviewed as appropriate & no additional complaints - Constitutional Constitutional: Reports system reviewed and no additional complaints, except as docu, Reports body ache, Reports fever(s) - Eyes Eyes: Reports system reviewed and no additional complaints, except as docu, Denies blurry vision - ENT Ears, Nose, Mouth, and Throat: Reports system reviewed and no additional complaints, except as docu, Denies bleeding gums - Cardiovascular Cardiovascular: Luis Daniel
[2021-07-18 20:37] LABS: UTC Influenza A Antigen Negative (Negative)
[2021-07-18 20:38] LABS: UTC Influenza B Antigen Negative (Negative)
[2021-07-18 20:39] VITALS: BP 137/87; PULSE 84; RESP 20; TEMP 37.1; O2SAT 98
== END 2021-07-18 20:43 | disposition home or self-care (01) ==
PROVIDERS: Emergency Provider Nurse Practitioner Family; PCP Pediatrics
DX: Z20.822 Contact with and (suspected) exposure to COVID-19 (principal); R50.9 Fever, unspecified; F41.9 Anxiety disorder, unspecified
CPT/HCPCS: 87804; 99202; G0463

== ENCOUNTER 2021-09-06 09:02 | Emergency (ER) | payer BC, SELFPAY ==
[2021-09-06 09:15] VITALS: BP 133/85; PULSE 88; RESP 19; TEMP 36.9; O2SAT 96; BMI 31.1
--- NOTE | 2021-09-06 09:21 | HMH.EDUTC ---
[facility] [place] Disposition Clinical Impression: Sinusitis Qualifiers: Sinusitis location: unspecified location Chronicity: unspecified Qualified Code(s): J32.9 - Chronic sinusitis, unspecified Disposition: Home, Self-Care Condition on Discharge: Good Instructions: Sinusitis, DI for Sinusitis Additional Instructions: *Monitor Temp, Over the counter Motrin or Tylenol as directed/as needed Tylenol every 4 hours and Motrin every 6 hours (as long as your family doctor has told you that you can take it) for fever or pain. and straight to ER if unable to lower temp less than 101.0 after medication given *Warm salt water gargles may help to soothe the throat *Throat Lozenges *Warm fluids like tea with honey may help to soothe the throat *Sleep elevated *Humidifier/Vaporizer Take medication as prescribed Return if needed Follow up IMMEDIATELY for new or worsening symptoms or no Noticeable improvement over the next 48-72 hours. 911 for difficulty breathing or swallowing Prescriptions: guaiFENesin [Mucinex 600mg tablet] 1 - 2 tab PO Q12HP PRN #20 tab PRN Reason: Congestion [facility] Amoxicillin/Potassium Clav [Augmentin 875-125 Tablet] 1 tab PO Q12H 10 Days #20 tab Transmission [facility]: [facility] methylPREDNISolone [Medrol 4mg tab] 4 mg PO DIRECTED #21 tab Transmission Status: [facility] Referrals: Tang Blackwood JR, MD [Primary Care Provider] - As needed Forms: Work/School Release Time of Disposition: 09:31 Medical Decision Making - Travis Inquiry Pt receiving controlled substance: No Travis was queried for this patient: No Vital Signs: 09/06/21 09:15 Temperature 98.5 F Temperature Source Oral Pulse Rate [Right Radial] 88 Respiratory Rate 19 Blood Pressure [Right Arm] 133/85 Blood Pressure Mean [Right Arm] 101 Blood Pressure Source [Right Arm] Automatic Cuff Blood Pressure Position [Right Arm] Sitting 02 Sat by Pulse Oximetry 96 Oxygen Delivery Method Room Air [facility] [place] HPI - General Stated complaint: possible sinus infection Time Seen by Provider: 09/06/21 09:21 Mode of Arrival: Ambulatory Source of Information: Patient Limitations: No Limitations Description of Symptoms (Recalled from Triage Doc. by RN): Pt stated that she has sinus pressure, runny nose, cough, sorethroat for 4 days. HEENT Symptoms (Recalled from RN notes): No Resp Symptoms (Recalled from RN notes): No Skin Symptoms (Recalled from RN notes): No MS Symptoms (Recalled from RN notes): No Functional Status (Recalled from RN notes): n/a - History of Present Illness Provider Complaint: Patient state that she has been fighting a sinus infection for over a week States that for the last 3-4 days it has continued to get worse States that she has been taking over the counter medication but not helped much so today she felt like her eyes was puffy and still having pain and pressure so she came in - Related Data Home Medications Medication Instructions Recorded Confirmed metoprolol tartrate 25 mg tablet PO 08/06/19 03/15/21 albuterol sulfate 90 mcg/actuation 1 inh INHALATION QID 03/05/21 03/15/21 aerosol inhaler fluticasone propionate 50 1 spray INTRANASAL DAILY 03/05/21 03/15/21 mcg/actuation nasal spray,suspension levothyroxine 75 mcg tablet 75 mcg PO DAILY 03/05/21 03/15/21 sumatriptan succinate 25 mg tablet 25 mg PO Q2H PRN 03/05/21 03/15/21 topiramate 25 mg tablet 25 mg PO DAILY 03/05/21 03/15/21 Buspirone HCl [Buspar 5mg tablet] 5 mg PO TID 09/06/21 09/06/21 Previous Rx's Medication Instructions Recorded azithromycin 250 mg tablet 250 mg PO QDAY 5 Days #6 tab 03/15/21 Amoxicillin/Potassium Clav 1 tab PO Q12H 10 Days #20 tab 09/06/21 [Augmentin 875-125 Tablet] guaiFENesin [Mucinex 600mg tablet] 1 - 2 tab PO Q12HP PRN #20 tab 09/06/21 methylPREDNISolone [Medrol 4mg 4 mg PO DIRECTED #21 tab 09/06/21 tab] Allergies
[2021-09-06 09:42] VITALS: BP 133/85; PULSE 88; RESP 19; TEMP 36.9; O2SAT 96
== END 2021-09-06 09:42 | disposition home or self-care (01) ==
PROVIDERS: Emergency Provider Nurse Practitioner; PCP Pediatrics
DX: J32.9 Chronic sinusitis, unspecified (principal)
CPT/HCPCS: 99212; G0463

== ENCOUNTER → 2022-02-11 11:00 | Outpatient (CLI) | payer BC, SELFPAY ==
--- NOTE | 2022-02-11 11:02 | CA_ITS ---
APPROVED REPORT EXAM: Comprehensive 2D, Doppler, and color-flow Echocardiogram Cemetery Keeper: Lily Roblero RDCS Ht: 5 ft 2 in Wt: 166lbs BSA: 1.77 BP: 116/80 mmHg Indications: MIGRAINES,R/O PFO BUBBLE STUDY DONE APPEARS NEGATIVE 2D Dimensions LVOT 1.87 cm (M/F) 1.5-2.5 M-Mode Dimensions RVDd 2.66 cm (0.9-2.6) LA Diam 3.11 cm (1.9-4.0) LVDd 4.85 cm (3.5-5.7) Ao Diam 3.11 cm (2.0-3.7) LVDs 3.38 cm (3.5-5.7) IVSd 0.59 cm (0.6-1.1) PWd 0.81 cm (0.6-1.1) EF (Teich) 57.50% FS 30.30% EDV (Teich) 110.20 mL TAPSE 1.90 (<1.7) ESV (Teich) 46.80 mL LV Diastology E Decel Time 150.00 (160-240 msec) E/A Ratio 0.8 MED E' 6.30 (< 7 cm/sec) E'/MED E' Ratio 7.25 (>14) LAT E' 6.50 (<10 cm/sec) E/LAT E' Ratio 7.03 (>14) Mitral Valve MV E Max Pascual. 46.00 (40-130 cm/s) MV A Velocity 59.00 (40-130 cm/s) E/A Ratio 0.78 MV Decel. Time 150.00 (160-240 ms) MV PHT 44.00 ms Left Ventricle Left atrium is qualitatively mildly enlarged, left ventricle is normal size, left ventricle wall thickness is upper limit of normal, there is preserved left ventricular systolic function, estimated ejection fraction 55% with no regional wall motion abnormality, grade 1 diastolic dysfunction seen without tissue Doppler evidence of raise left atrial pressure. Right Ventricle Right atrium and right ventricle are normal size and contractility. Atria Intra-atrial septum is intact, there is no flow across the interatrial septum, agitated saline contrast study did not identify intracardiac shunt. Mitral Valve Mitral valve grossly normal, there is trace mitral regurgitation. Tricuspid Valve Tricuspid grossly normal, there is trace tricuspid regurgitation, tricuspid regurgitation jet velocity is inadequate for calculation of the right ventricular systolic pressure. Pulmonic Valve Pulmonic valve is poorly visualized. Great Vessels Aortic root is normal size. Inferior vena cava normal size with normal inspiratory collapse. Pericardium No significant pericardial effusion noted. Conclusion 1. Mildly enlarged left atrium, normal left ventricular size, estimated ejection fraction 55% with no regional wall motion abnormality, grade 1 diastolic dysfunction seen without tissue Doppler evidence of raise left atrial pressure. 2. Trace mitral and tricuspid regurgitation. 3. No significant pericardial effusion noted. 4. Inferior vena cava is normal size with normal inspiratory collapse. Electronically signed by : Cal Rodrigez MD 02/11/2022 12:56:16
== END ==
PROVIDERS: PCP Nurse Practitioner Family; Visit Provider Specialist
DX: G43.109 Migraine with aura, not intractable, without status migrainosus (principal)
CPT/HCPCS: 93306

== ENCOUNTER 2022-02-15 11:25 | Emergency (ER) | payer BC, SELFPAY ==
--- NOTE | 2022-02-15 11:44 | HMH.EDUTC ---
[facility] [place] Disposition Clinical Impression: Viral syndrome, Exposure to COVID-19 virus Disposition: Home, Self-Care Condition on Discharge: Good Instructions: DI for Viral Syndrome, DI for COVID-19 (Suspected or Confirmed ), Preventing the Spread of Coronavirus Discharge Instructions Additional Instructions: Drink plenty of fluids. Take tylenol for pain or fever. Return if you begin to have difficulty breathing. Follow up with your regular doctor. GO TO THE ER FOR ANY WORSENING SYMPTOMS Quarantine until you know the results of your covid-19 test. Notify your school or workplace of your results and follow their instructions regarding return to work/school. Prescriptions: Ibuprofen [Ibuprofen 600mg Tablet] 600 mg PO Q6HP PRN #30 tab PRN Reason: Mild Pain Transmission Status: Received by [facility] Ondansetron [Zofran 4mg ODT] 4 mg PO Q8HP PRN #20 tab PRN Reason: Nausea Transmission Status: Received by [facility] Benzonatate [Benzonatate 100mg cap] 100 mg PO TIDP PRN #30 cap PRN Reason: Cough Transmission Status: Received by [facility] Referrals: Samantha Valentine [Primary Care Provider] - Forms: Work/School Release Time of Disposition: 12:26 Medical Decision Making - Medical Records Medical records reviewed: No: I reviewed the patient's medical records. - Travis Inquiry Pt receiving controlled substance: No Vital Signs: 02/15/22 11:47 02/15/22 12:29 Temperature 99.2 F 99.2 F Temperature Source Oral Pulse Rate 111 H Pulse Rate [Left] 111 H Respiratory Rate 18 18 Blood Pressure 140/78 Blood Pressure [Right Arm] 140/78 Blood Pressure Mean [Right Arm] 98 02 Sat by Pulse Oximetry 99 - Lab Data Lab Results 02/15/22 11:40: Strep Scn Rapid Clinic Negative Orders (Tests/Meds): ORDERS Category Date Time Status Covid-19 Nasal PCR ([facility]) Routine Lab 02/15/22 11:41 Received Strep Screen Confirmation Stat Micro 02/15/22 11:40 Received [facility] [place] HPI - General Stated complaint: Possible virus Time Seen by Provider: 02/15/22 11:44 - History of Present Illness Provider Complaint: She states that for the past 1 day she has had chills, low grade fever, body aches, a dry cough and a scratchy sore throat. She has been exposed to covid-19 - Related Data Home Medications Medication Instructions Recorded Confirmed metoprolol tartrate 25 mg tablet PO 08/06/19 01/20/22 albuterol sulfate 90 mcg/actuation 1 inh INHALATION QID 03/05/21 01/20/22 aerosol inhaler fluticasone propionate 50 1 spray INTRANASAL DAILY 03/05/21 01/20/22 mcg/actuation nasal spray,suspension levothyroxine 75 mcg tablet 75 mcg PO DAILY 03/05/21 01/20/22 Buspirone HCl [Buspar 5mg tablet] 5 mg PO TID 09/06/21 01/20/22 baclofen 10 mg tablet 10 mg PO DAILY tab 01/20/22 01/20/22 montelukast 10 mg tablet 10 mg PO DAILY tab 01/20/22 01/20/22 valacyclovir 1 gram tablet 1,000 mg PO DAILY tab 01/20/22 01/20/22 Previous Rx's Medication Instructions Recorded rizatriptan 10 mg disintegrating 10 mg PO ONCE PRN #10 tab MDD 20 mg 01/20/22 tablet topiramate 50 mg tablet 100 mg PO HS #60 tab 01/20/22 Benzonatate [Benzonatate 100mg 100 mg PO TIDP PRN #30 cap 02/15/22 cap] Ibuprofen [Ibuprofen 600mg 600 mg PO Q6HP PRN #30 tab 02/15/22 Tablet] Ondansetron [Zofran 4mg ODT] 4 mg PO Q8HP PRN #20 tab 02/15/22 Allergies Allergy/AdvReac Type Severity Reaction Status Date / Time No Known Allergies Allergy Verified 02/15/22 11:49 [facility] History - Hepatitis A Screen Attestation statement:: This patient has been screened for Hepatitis A risk factors. I have reviewed the patient's past medical history: Yes Medical History: Reports:: Anxiety, Depression, Gall Bladder Disease, Migraine Denies:: Diabetes Mellitus Type 1, Diabetes Mellitus Type 2, Hypertension, Seizures Other Medical History: Reports: Anemi
[2022-02-15 11:47] VITALS: BP 140/78; PULSE 111; RESP 18; TEMP 37.3; O2SAT 99; BMI 30.8
[2022-02-15 11:52] LABS: UTC Strep Screen (Rapid) Negative (Negative)
[2022-02-15 12:29] VITALS: BP 140/78; PULSE 111; RESP 18; TEMP 37.3
== END 2022-02-15 12:30 | disposition home or self-care (01) ==
PROVIDERS: Emergency Provider Nurse Practitioner Family; PCP Nurse Practitioner Family
DX: U07.1 COVID-19 (principal)
CPT/HCPCS: 87880; 99212; C9803; G0463; U0003; U0005

== ENCOUNTER 2022-07-05 10:15 | Emergency (ER) | payer BC, SELFPAY ==
[2022-07-05] VITALS (8 sets, daily range): BP systolic 127–146; BP diastolic 64–79; PULSE 72–88; RESP 16–20; TEMP 36.9; O2SAT 98–100; BMI 30.2
[2022-07-05 10:26] LABS: Microscopic, Urine URINE MICROSCOPIC (MICROSCOPIC)
[2022-07-05 10:34] LABS: Appearance,Urine CLEAR (Clear); Blood, Urine 2+ (Negative); Color,Urine YELLOW (Yellow); Glucose,Urine (UA) Negative (Negative); Ketones,Urine Negative (Negative); Leukocyte Esterase,Urine Negative (Negative); Nitrate,Urine Negative (Negative); Protein,Urine TRACE (Negative); Specific Gravity, Urine >= 1.030 (1.005-1.030); Urobilinogen,Urine 0.2 EU/dl (0.2)
[2022-07-05 10:37] LABS: Bilirubin,Urine 1+ (Negative)
[2022-07-05 10:52] LABS: Bacteria,Urine Trace /lpf; Calcium Oxalate Crystals,Urine 1+ /lpf; WBC,Urine Occasional #/hpf (0-3)
--- NOTE | 2022-07-05 11:10 | HMH.EDGENADL ---
Discharge Plan Disposition Patient Disposition: Home, Self-Care Condition: Good Prescriptions Prescriptions: New tamsulosin [Flomax] 0.4 mg capsule 0.4 mg PO HS Qty: 10 0RF ketorolac 10 mg tablet 10 mg PO Q6H PRN (Reason: pain) Qty: 10 0RF ondansetron 4 mg tablet,disintegrating 4 mg PO Q8H PRN (Reason: nausea and vomiting) Qty: 10 0RF oxycodone-acetaminophen [Percocet] 5-325 mg tablet 1 tab PO Q6H PRN (Reason: pain) Qty: 10 0RF No Action metoprolol tartrate 25 mg tablet PO Label Comments: TAKE 1 2 (ONE HALF) TABLET BY MOUTH TWICE DAILY levothyroxine [Synthroid] 75 mcg tablet 75 mcg PO DAILY albuterol sulfate 90 mcg/actuation HFA aerosol inhaler 1 inh INHALATION QID fluticasone propionate [Flonase Allergy Relief] 50 mcg/actuation spray,suspension 1 spray INTRANASAL DAILY Rx Instructions: administer into each nostril baclofen 10 mg tablet 10 mg PO DAILY valacyclovir 1 gram tablet 1,000 mg PO DAILY montelukast 10 mg tablet 10 mg PO DAILY topiramate 50 mg tablet 100 mg PO HS Qty: 60 3RF rizatriptan 10 mg tablet 10 mg PO ONCE MDD 20 mg PRN (Reason: migraine headache) Qty: 10 6RF Rx Instructions: do not exceed 2 tabs per 24 hrs or 4 tabs/week benzonatate 100 MG capsule 100 mg PO TIDP PRN (Reason: Cough) Qty: 30 0RF ondansetron 4 MG tablet,disintegrating 4 mg PO Q8HP PRN (Reason: Nausea) Qty: 20 0RF ibuprofen 600 MG tablet 600 mg PO Q6HP PRN (Reason: Mild Pain) Qty: 30 0RF buspirone 5 MG tablet 5 mg PO TID Referrals Follow up/Referrals: Provider,Referral, MD [Primary Care Provider] - See instructions Activity Restrictions/Add. Instructions Additional Instructions/Restrictions: Flomax as prescribed. Toradol and Percocet as needed for pain. Zofran as needed for nausea. Additional instructions for KIDNEY STONE (URETERAL CALCULUS): See your primary care provider or urologist as soon as possible for further evaluation. Drink plenty of fluids. Strain your urine and save any stones you catch. Return immediately if you develop a fever or have uncontrollable vomiting or uncontrollable pain. Ror follow up with a urologist, call for appointment: [facility] [address] [place] [address] Karl Pozo [facility] [address] [facility] [place] [address] Additional instructions for CONTROLLED SUBSTANCES: You have been prescribed a medication that is a controlled substance. Controlled substances include pain medications known as opiates and sedative nerve medications known as benzodiazepines. Tramadol, fioricet, and gabapentin are also controlled substances. Some common opiates include: Codeine (such as Tylenol #3) Hydrocodone (Vicodin, Lortab, Lorcet, Geronimo) Oxycodone (Percocet, Percodan, Oxycodone, Oxy IR) Some common benzodiazepines include: Diazepam (Valium) Lorazepam (Ativan) Alprazolam (Xanax) Clonazepam (Klonopin) Oxazepam (Serax) All of these controlled substances are highly addictive and frequently abused. Misuse can and frequently does lead to addiction as well as overdose and . Medication should be stored in a locked cabinet or other secure storage unit. Do not store the medication in a motor vehicle. Short term supplies, 3 days or less, are prescribed because of the highly addictive nature of the medication. Any of the controlled substance medication NOT taken should be disposed of properly and NOT SAVED. The recommended method of disposing of unused medications is: Place the medicines in a sealable plastic bag. If the medicine is a solid, crush it or add water to dissolve it. Add something undesirable (cat litter, coffee grounds, etc.) Dispose of sealed bag in household trash Do not flush or pour unused medicines down a sink or drain. Controlled subs
[2022-07-05 11:22] LABS: Chloride 107 mmol/L (98-107)
--- NOTE | 2022-07-05 11:22 | PC.NURSE ---
FABIO NEWTON at
[2022-07-05 11:23] LABS: Sodium 142 mmol/L (136-145)
[2022-07-05 11:25] LABS: Alanine Aminotransferase 15 U/L (12-78); Alkaline Phosphatase 52 U/L (38-126); Aspartate Amino Transferase 34 U/L (14-36); Bilirubin,Total 0.6 mg/dl (0.2-1.3); Blood Urea Nitrogen 15 mg/dl (7-17); Creatinine Clearance Estimated 111 mL/min (50-200); Estimated Glomerular Filt Rate 89 ml/min (>60); GFR (African American) 108 ML/MIN (>60); Potassium 3.9 mmoL/L (3.5-5.1)
[2022-07-05 11:26] LABS: Albumin Level 4.5 g/dl (3.5-5.0); Albumin/Globulin Ratio 1.6 (1.1-1.8); Anion Gap 13.9 mEq/L (5-15); Calcium 10.5 mg/dl (8.4-10.2); Carbon Dioxide 25 mmol/L (22.0-30.0); Globulin 2.9 g/dL (1.3-3.2); Glucose 130 mg/dl (74-100); Total Protein,Serum 7.4 g/dl (6.3-8.2)
--- NOTE | 2022-07-05 11:29 | CT_ITS ---
FINAL REPORT TECHNIQUE: Axial CT images were performed from the lung bases through the pubic symphysis. Coronal reformats were submitted and reviewed. This study was performed with techniques to keep radiation doses as low as reasonably achievable (ALARA). Individualized dose reduction techniques using automated exposure control or adjustment of mA and/or kV according to the patient's size were employed. CLINICAL HISTORY: L flank pain X 3 WEEKS COMPARISON: January 2020 FINDINGS: Abdomen: There is mild bibasilar atelectasis or scarring. The gallbladder is present. There is a 4.7 cm mass in the lateral left hepatic lobe that previously measured 6 cm and favors a cyst. There are several other less than 1 cm left hepatic lobe masses that likely represent cysts. The spleen and pancreas are unremarkable. There are no adrenal masses. There is no nephrolithiasis. There is mild left hydronephrosis and hydroureter secondary to a 2 mm stone at the left UVJ. There is left perinephric stranding/edema.. Pelvis: The appendix is not identified consistent with history of appendectomy. The urinary bladder is unremarkable. IMPRESSION: Left hydronephrosis and hydroureter secondary to a 2 mm left UVJ stone. Left perinephric stranding/edema. Left hepatic lobe masses likely representing cysts. Reviewed, Interpreted and Dictated by Arun Raygoza III, MD Transcribed by Emory Umana Authenticated and . [facility]
[2022-07-05 11:32] LABS: Basophils # 0.1 K/mm3 (0-0.2); Basophils % 0.9 % (0.1-2.0); Eosinophils # 0.1 K/mm3 (0.0-0.4); Eosinophils % 1.2 % (0.1-12.0); Hematocrit 44.4 % (37.0-47.0); Lymphocytes # 1.5 K/mm3 (0.7-4.5); Lymphocytes % 28.4 % (10-50); Mean Corpuscular HGB Conc 33.7 g/dL (31.8-35.4); Mean Corpuscular Hemoglobin 28.9 pg (27.0-31.2); Mean Corpuscular Volume 85.8 fl (81-99); Mean Platelet Volume 7.7 fl (7.4-10.4); Monocytes # 0.2 K/mm3 (0.1-1.0); Monocytes % 3.9 % (1.7-9.3); Neutrophils # 3.6 K/mm3 (1.8-7.8); Neutrophils % 65.7 % (37.0-80.0); Platelet Count 277 K/mm3 (142-424); Red Blood Count 5.18 M/mm3 (4.20-5.40); Red Cell Distribution Width 14.1 % (11.5-17.5); White Blood Count 5.4 K/mm3 (4.8-10.8)
--- NOTE | 2022-07-05 11:57 | PC.NURSE ---
contacted lab to check on status of urine preg, billy carlos will get it running.
--- NOTE | 2022-07-05 11:59 | PC.NURSE ---
rad aware of ct order
[2022-07-05 12:03] LABS: Urine Pregnancy, HCG Qual. Negative (Negative)
--- NOTE | 2022-07-05 12:07 | PC.NURSE ---
patient went to [facility]T
== END 2022-07-05 13:50 | disposition home or self-care (01) ==
PROVIDERS: Emergency Provider Emergency Medicine
DX: N13.2 Hydronephrosis with renal and ureteral calculous obstruction (principal); R11.2 Nausea with vomiting, unspecified; G43.909 Migraine, unspecified, not intractable, without status migrainosus; Z79.51 Long term (current) use of inhaled steroids; Z79.899 Other long term (current) drug therapy
CPT/HCPCS: 74176; 80053; 81001; 81025; 85025; 96361; 96374; 96375; 99285; J2405

== ENCOUNTER → 2022-08-10 14:42 | Outpatient (CLI) | payer BC, SELFPAY | PROVIDERS: PCP Nurse Practitioner Family; Visit Provider Specialist | DX: G47.30 Sleep apnea, unspecified (principal) | CPT/HCPCS: G0399 ==

== ENCOUNTER 2023-04-03 18:32 | Emergency (ER) | payer BC, SELFPAY ==
[2023-04-03 18:50] VITALS: BP 152/68; PULSE 88; RESP 20; TEMP 36.7; O2SAT 98; BMI 30.2
--- NOTE | 2023-04-03 19:06 | EXP.UTC ---
Discharge Plan Disposition Patient Disposition: Still a Patient Prescriptions Prescriptions: No Action diclofenac sodium 75 mg tablet,delayed release (DR/EC) 75 mg PO PRN Nurtec ODT 75 mg tablet,disintegrating 75 mg PO Q OTHER DAY Qty: 15 6RF Rx Instructions: 1 tab every other day. levothyroxine [Synthroid] 75 mcg tablet 75 mcg PO DAILY fluticasone propionate [Flonase Allergy Relief] 50 mcg/actuation spray,suspension 1 spray INTRANASAL DAILY Rx Instructions: administer into each nostril albuterol sulfate 90 mcg/actuation HFA aerosol inhaler 1 inh INHALATION QID PRN valacyclovir 1 gram tablet 1,000 mg PO DAILY montelukast 10 mg tablet 10 mg PO DAILY baclofen 10 mg tablet 10 mg PO DAILY PRN rizatriptan 10 mg tablet 10 mg PO ONCE MDD 20 mg PRN (Reason: migraine headache) Qty: 10 6RF Rx Instructions: do not exceed 2 tabs per 24 hrs or 4 tabs/week benzonatate 100 MG capsule 100 mg PO TIDP PRN (Reason: Cough) Qty: 30 0RF ondansetron 4 MG tablet,disintegrating 4 mg PO Q8HP PRN (Reason: Nausea) Qty: 20 0RF buspirone 5 mg tablet 5 mg PO BID ketorolac 10 mg tablet 10 mg PO Q6H PRN (Reason: pain) Qty: 10 0RF Referrals Follow up/Referrals: Imani Live APRN [Primary Care Provider] - See instructions Discharge ED Provider: Marianne Umanzor [facility] General Stated complaint: bloated, stomach ache Mode of Arrival: Ambulatory Source of Information: Patient Limitations: No Limitations Time Seen by Provider: 04/03/23 19:06 Description of Symptoms (Recalled from Triage Doc. by RN): PATIENT C/O PAIN TO LUQ THAT RADIATES INTO LEFT CHEST THAT STARTED MONDAY. SHE STATES PAIN IS WORSE WHEN SHE SWALLOWS. SHE HAS TAKEN TUMS AND PRILOSEC TODAY WITH NO RELIEF. DENIES NAUSEA, VOMITING, DIARRHEA OR CONSTIPATION. HEENT Symptoms (Recalled from RN notes): No Resp Symptoms (Recalled from RN notes): No Skin Symptoms (Recalled from RN notes): No MS Symptoms (Recalled from RN notes): No Functional Status (Recalled from RN notes): WNL History of Present Illness Provider Complaint: Patient states that on Monday she started having pain in her mid to left upper abdomen States that it felt like a sharp pain that at times would shoot up into her chest States that she started watching what she was eating thinking it may have been indigestion so she has been eating fruit and bread but hasnt helped States that she has been taking tums still no relief 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[employer] and they did EKG earlier there and it looked ok but now she is feeling like her abdomen is swollen and pain is getting worse especially certain ways she sits or if she bends over States that she started Prilosec today hoping that would help but this evening when she would bend over the pain would get worse Denies N/V/D Denies constipation States that she has been having normal bowel movements but are softer than usual Related Data Home Medications Medication Instructions Recorded Confirmed fluticasone propionate 50 1 spray intranasal DAILY 03/05/21 08/10/22 mcg/actuation nasal spray,suspension (Flonase Allergy Relief) levothyroxine 75 mcg tablet 75 mcg PO DAILY 03/05/21 08/10/22 (Synthroid) montelukast 10 mg tablet 10 mg PO DAILY 01/20/22 08/10/22 valacyclovir 1 gram tablet 1,000 mg PO DAILY 01/20/22 08/10/22 albuterol sulfate 90 mcg/actuation 1 inh inhalation QID PRN 07/12/22 08/10/22 aerosol inhaler baclofen 10 mg tablet 10 mg PO DAILY PRN 07/12/22 08/10/22 buspirone 5 mg tablet 5 mg PO BID anxiety 07/12/22 08/10/22 diclofenac sodium 75 mg 75 mg PO PRN 08/10/22 08/10/22 tablet,delayed release Previous Rx's Medication Instructions Recorded benzonatate 100 mg capsule 100 mg PO TIDP PRN Cough #30 caps 02/15/22 ondansetron 4 mg disintegrating 4 mg PO Q8HP PRN Nausea #20 tabs 02/15/22 tablet rizatriptan 10 mg tablet 10 mg PO ONCE PRN migraine 05/10/22
--- NOTE | 2023-04-03 19:13 | PC.NURSE ---
PATIENT SENT TO ER PER Key EVANS APRN FOR FURTHER EVALUATION. REPORT GIVEN TO Darrel COHEN RN BY Key EVANS APRN
[2023-04-03 19:15] VITALS: BP 148/70; PULSE 105; RESP 20; TEMP 36.8; O2SAT 97; BMI 30.2
[2023-04-03 19:27] LABS: Microscopic, Urine URINE MICROSCOPIC (MICROSCOPIC)
[2023-04-03 19:28] LABS: Appearance,Urine CLEAR (Clear); Blood, Urine 1+ (Negative); Color,Urine YELLOW (Yellow); Glucose,Urine (UA) Negative (Negative); Ketones,Urine 1+ (Negative); Leukocyte Esterase,Urine Negative (Negative); Nitrate,Urine Negative (Negative); Protein,Urine Negative (Negative); Specific Gravity, Urine >= 1.030 (1.005-1.030); Urobilinogen,Urine 0.2 EU/dl (0.2)
[2023-04-03 19:30] VITALS: BP 141/74; PULSE 95; O2SAT 98
[2023-04-03 19:31] LABS: Bilirubin,Urine 1+ (Negative)
[2023-04-03 19:41] LABS: RBC,Urine Occasional #/hpf (0-3); Squamous Epithelial Cell,Urine Occasional #/hpf (0-5)
--- NOTE | 2023-04-03 19:44 | XR_ITS ---
PROCEDURE INFORMATION: Exam: XR Chest Exam date and time: 04/03/2023 8:05 PM Age: 52 years old Clinical indication: Pain; Left-sided; Additional info: Cp/luq pain TECHNIQUE: Imaging protocol: Radiologic exam of the chest. Views: 1 view. COMPARISON: CT ABDOMEN PELVIS WO CON 07/05/2022 12:05 PM FINDINGS: Lungs: See Pleural spaces finding. Pleural spaces: Low lung volumes are present without large pleural effusions or consolidations. Heart/Mediastinum: Unremarkable. No cardiomegaly. Bones/joints: Unremarkable. IMPRESSION: Low lung volumes are present without large pleural effusions or consolidations.
--- NOTE | 2023-04-03 19:45 | HMH.EDGENADL ---
Discharge Plan Disposition Patient Disposition: Home, Self-Care Prescriptions Prescriptions: No Action diclofenac sodium 75 mg tablet,delayed release (DR/EC) 75 mg PO PRN Nurtec ODT 75 mg tablet,disintegrating 75 mg PO Q OTHER DAY Qty: 15 6RF Rx Instructions: 1 tab every other day. levothyroxine [Synthroid] 75 mcg tablet 75 mcg PO DAILY fluticasone propionate [Flonase Allergy Relief] 50 mcg/actuation spray,suspension 1 spray INTRANASAL DAILY Rx Instructions: administer into each nostril albuterol sulfate 90 mcg/actuation HFA aerosol inhaler 1 inh INHALATION QID PRN valacyclovir 1 gram tablet 1,000 mg PO DAILY montelukast 10 mg tablet 10 mg PO DAILY baclofen 10 mg tablet 10 mg PO DAILY PRN rizatriptan 10 mg tablet 10 mg PO ONCE MDD 20 mg PRN (Reason: migraine headache) Qty: 10 6RF Rx Instructions: do not exceed 2 tabs per 24 hrs or 4 tabs/week benzonatate 100 MG capsule 100 mg PO TIDP PRN (Reason: Cough) Qty: 30 0RF ondansetron 4 MG tablet,disintegrating 4 mg PO Q8HP PRN (Reason: Nausea) Qty: 20 0RF buspirone 5 mg tablet 5 mg PO BID ketorolac 10 mg tablet 10 mg PO Q6H PRN (Reason: pain) Qty: 10 0RF Referrals Follow up/Referrals: Imani Live APRN [Primary Care Provider] - See instructions Activity Restrictions/Add. Instructions Additional Instructions/Restrictions: At this time it was felt you are safe to be discharged home. If new or worsening symptoms please do not hesitate to return the emergency department. Please continue to take your PPI as discussed and follow-up with your family doctor as discussed. Clinical Impressions Clinical Impression: Abdominal pain, LUQ, Chest pain Instructions Patient Instructions: DI for Acute Abdominal Pain Discharge ED Provider: Duran Peña General Adult HPI General Chief complaint: Abdominal Pain Stated complaint: bloated, stomach ache Time Seen by Provider: 04/03/23 19:06 Mode of Arrival: Ambulatory Source of Information: Patient Limitations: No Limitations Description of Symptoms (Recalled from ER Triage Doc. by RN): 52 y/o F presented to [facility] with upper left quad abd pain x4 days. Reports abdomen is distended. Denies N/V/D. Patient states pain today was radiating to her upper left shoulder. Denies any heart history/chest pain. 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 History of Present Illness HPI narrative: Patient is a 52-year-old female with no pertinent past medical history presents emergency department for evaluation of left lower quadrant abdominal pain and chest pain. It is been going on for 4 days. Patient states that it radiates up into her left chest. Does not radiate to her back. No dysuria, no bloody stool. No hematemesis. Patient states that her heart rate normally runs high . Related Data Home Medications Medication Instructions Recorded Confirmed fluticasone propionate 50 1 spray intranasal DAILY 03/05/21 08/10/22 mcg/actuation nasal spray,suspension (Flonase Allergy Relief) levothyroxine 75 mcg tablet 75 mcg PO DAILY 03/05/21 08/10/22 (Synthroid) montelukast 10 mg tablet 10 mg PO DAILY 01/20/22 08/10/22 valacyclovir 1 gram tablet 1,000 mg PO DAILY 01/20/22 08/10/22 albuterol sulfate 90 mcg/actuation 1 inh inhalation QID PRN 07/12/22 08/10/22 aerosol inhaler baclofen 10 mg tablet 10 mg PO DAILY PRN 07/12/22 08/10/22 buspirone 5 mg tablet 5 mg PO BID anxiety 07/12/22 08/10/22 diclofenac sodium 75 mg 75 mg PO PRN 08/10/22 08/10/22 tablet,delayed release Previous Rx's Medication Instructions Recorded benzonatate 100 mg capsule 100 mg PO TIDP PRN Cough #30 caps 02/15/22 ondansetron 4 mg disintegrating 4 mg PO Q8HP PRN Nausea #20 tabs 02/15/22 tablet rizatriptan 10 mg tablet 10 mg PO ONCE PRN migraine 05/10/22 headache #10 tabs ketorolac 10 mg tablet 10 mg PO Q6
[2023-04-03 19:58] LABS: Basophils % 0.5 % (0.1-2.0); Eosinophils # 0.3 K/mm3 (0.0-0.4); Eosinophils % 3.4 % (0.1-12.0); Hematocrit 48.3 % (37.0-47.0); Hemoglobin 15.7 g/dL (12.2-16.2); Lymphocytes # 1.7 K/mm3 (0.7-4.5); Mean Corpuscular HGB Conc 32.5 g/dL (31.8-35.4); Mean Corpuscular Hemoglobin 27.5 pg (27.0-31.2); Mean Corpuscular Volume 84.6 fl (81-99); Mean Platelet Volume 7.9 fl (7.4-10.4); Monocytes # 0.4 K/mm3 (0.1-1.0); Monocytes % 5.5 % (1.7-9.3); Neutrophils # 5.1 K/mm3 (1.8-7.8); Neutrophils % 68.5 % (37.0-80.0); Platelet Count 262 K/mm3 (142-424); Red Blood Count 5.71 M/mm3 (4.20-5.40); Red Cell Distribution Width 14.3 % (11.5-17.5); White Blood Count 7.5 K/mm3 (4.8-10.8)
[2023-04-03 20:00] VITALS: BP 160/66; PULSE 94; O2SAT 97
--- NOTE | 2023-04-03 20:05 | ECG_ITS ---
APPROVED REPORT Exam: Resting ECG HR:90 bpm ECG Measurements Heart Rate [address] 159 P 55 QRSd 95 QRS 76 QT 350 T 58 QTc 398 Conclusion SINUS RHYTHM POSSIBLE LEFT ATRIAL ENLARGEMENT [-0.1mV P-WAVE IN V1/V2] INCOMPLETE RIGHT BUNDLE BRANCH BLOCK [90+ ms QRS DURATION, TERMINAL R IN V1/V2, 40+ ms S IN I/aVL/V4/V5/V6] BORDERLINE ECG UNCONFIRMED REPORT Electronically signed by : Chad Lofton MD 04/04/2023 20:02:54
[2023-04-03 20:12] LABS: Alanine Aminotransferase 15 U/L (12-78); Albumin Level 4.9 g/dl (3.5-5.0); Albumin/Globulin Ratio 1.3 (1.1-1.8); Alkaline Phosphatase 69 U/L (38-126); Anion Gap 12.8 mEq/L (5-15); Aspartate Amino Transferase 28 U/L (14-36); Bilirubin,Total 0.8 mg/dl (0.2-1.3); Blood Urea Nitrogen 13 mg/dl (7-17); Calcium 9.6 mg/dl (8.4-10.2); Carbon Dioxide 30 mmol/L (22.0-30.0); Chloride 101 mmol/L (98-107); Creatinine Clearance Estimated 154 mL/min (50-200); Estimated Glomerular Filt Rate 131 ml/min (>60); GFR (African American) 158 ML/MIN (>60); Globulin 3.7 g/dL (1.3-3.2); Glucose 117 mg/dl (74-100); Lipase 211 U/L (23-300); Potassium 3.8 mmoL/L (3.5-5.1); Sodium 140 mmol/L (136-145); Total Protein,Serum 8.6 g/dl (6.3-8.2)
[2023-04-03 20:18] LABS: D-Dimer 0.92 ug/mL (0.0-0.5)
[2023-04-03 20:28] LABS: Troponin I < 0.01 ng/ml (0.00-0.034)
[2023-04-03 21:02] VITALS: BP 113/72; PULSE 78; RESP 19; TEMP 36.8; O2SAT 98
== END 2023-04-03 21:05 | disposition home or self-care (01) ==
LOC: UTC 18:35 → ER 19:13
PROVIDERS: Emergency Provider Emergency Medicine; PCP Nurse Practitioner Family
DX: R10.12 Left upper quadrant pain; R07.9 Chest pain, unspecified; I45.19 Other right bundle-branch block
CPT/HCPCS: 71045; 80053; 81001; 83690; 84484; 85025; 85378; 93005; 99284